=== PATIENT | male | born 1935 | race Two or more races ===

== ENCOUNTER 2017-05-13 01:01 | Inpatient (IN) | payer MEDICARE, OTHER ==
[~2017-05-13] VITALS: Ht 180.3 cm; Wt 81.6 kg
[2017-05-13] VITALS (11 sets, daily range): BP systolic 117–194; BP diastolic 59–106
[2017-05-13 01:56] LABS: BASOPHILS % (AUTO) 0.8 % (0.0-2.0); LYMPHOCYTES % (AUTO) 9.5 % (20.0-45.0); MEAN CORPUSCULAR HEMOGLOBIN 27.3 PG (27.0-31.0); MEAN CORPUSCULAR HGB CONC 31.4 G/DL (32.0-36.0); MEAN CORPUSCULAR VOLUME 87 FL (80-99); MEAN PLATELET VOLUME 6.7 FL (6.5-10.1); MONOCYTES % (AUTO) 12.7 % (1.0-10.0); NEUTROPHILS % (AUTO) 77.1 % (45.0-75.0); PLATELET COUNT 242 K/UL (150-450); RED BLOOD COUNT 4.75 M/UL (4.70-6.10); WHITE BLOOD COUNT 16.9 K/UL (4.8-10.8)
[2017-05-13 02:10] LABS: ANION GAP 12 mmol/L (5-15); CALCIUM 8.8 MG/DL (8.5-10.1); CARBON DIOXIDE 23 MMOL/L (21-32); CHLORIDE 106 MMOL/L (98-107); CREATININE 1.9 MG/DL (0.55-1.30); POTASSIUM 3.3 MMOL/L (3.5-5.1); SODIUM 141 MMOL/L (136-145)
[2017-05-13 02:20] LABS: REFLEX LACTIC ACID YES OR NO YES
[2017-05-13 02:24] LABS: ALANINE AMINOTRANSFERASE 33 U/L (12-78); ALBUMIN/GLOBULIN RATIO 0.8 (1.0-2.7); ASPARTATE AMINO TRANSFERASE 18 U/L (15-37); CKMB < 0.5 NG/ML (0.0-3.6); TOTAL PROTEIN 7.2 G/DL (6.4-8.2)
[2017-05-13 02:44] LABS: APPEARANCE,URINE CLOUDY; KETONES,URINE NEGATIVE (NEGATIVE); LEUKOCYTE ESTERASE ,URINE 3+ (NEGATIVE); NITRITE,URINE POSITIVE (NEGATIVE); PH,URINE 5 (4.5-8.0); PROTEIN,URINE 3+ (NEGATIVE); UROBILINOGEN,URINE NORMAL MG/DL (0.0-1.0)
[2017-05-13 02:51] LABS: BACTERIA,URINE MANY /HPF; WBC,URINE TNTC /HPF (0 - 0)
[2017-05-13] MEDS ORDERED: cefTRIAXone 1 GM in NS 55 ML IVPB ONE (03:00)
[2017-05-13] MEDS ORDERED: UNOBMED (03:13)
[2017-05-13] MEDS ORDERED: CLONIDINE0.1 MG ORAL (03:44)
[2017-05-13] MEDS ORDERED: ASPIR 8181 MG ORAL (03:44)
[2017-05-13] MEDS ORDERED: NORVASC2.5 MG ORAL (03:44)
[2017-05-13] MEDS ORDERED: dilTIAZem HCl 25mg/5ml Inj IVP ONE (04:15)
[2017-05-13] MEDS ORDERED: Acetaminophen 500mg (ES) tab ORAL ONE (04:30)
--- NOTE | 2017-05-13 05:47 | Emergency Room Report ---
History of Present Illness General Chief Complaint: Generalized Weakness Source: EMS Present Illness HPI 81-year-old male presents ED for evaluation. Per EMS patient noted to be feeling weak for the last several days. Son call 911. States that patient was walking with unsteady gait. No slurred speech or facial droop. No chest pain shortness of breath. Denies any fevers or chills. Denies sick contacts or recent travel. No other aggravating factors. Denies any other specific symptoms Allergies: Coded Allergies: No Known Allergies (Unverified , 05/13/17) Patient History Past Medical History: HTN Past Surgical History: none Pertinent Family History: none Social History: Denies: smoking, alcohol use, drug use Immunizations: UTD Reviewed Nursing Documentation: PMH: Agreed, PSxH: Agreed Nursing Documentation-PMH Past Medical History: No History, Except For Hx Hypertension: Yes Review of Systems All Other Systems: negative except mentioned in HPI Physical Exam Vital Signs Date Time Temp Pulse Resp B/P (MAP) Pulse Ox O2 Delivery O2 Flow Rate FiO2 05/13/17 00:33 98.1 102 16 137/74 98 Room Air Sp02 EP Interpretation: reviewed, normal General Appearance: no apparent distress, alert, GCS 15, non-toxic Head: normocephalic, atraumatic Eyes: bilateral eye normal inspection, bilateral eye PERRL ENT: hearing grossly normal, normal pharynx, no angioedema, normal voice Neck: full range of motion, supple/symm/no masses Respiratory: chest non-tender, lungs clear, normal breath sounds, speaking full sentences Cardiovascular #1: regular rate, rhythm, no edema Cardiovascular #2: 2+ carotid (R), 2+ carotid (L), 2+ radial (R), 2+ radial (L) , 2+ dorsalis pedis (R), 2+ dorsalis pedis (L) Gastrointestinal: normal bowel sounds, non tender, soft, non-distended, no guarding, no rebound Rectal: deferred Genitourinary: normal inspection, no CVA tenderness Musculoskeletal: back normal, gait/station normal, normal range of motion, non- tender Neurologic: alert, oriented x3, responsive, motor strength/tone normal, sensory intact, speech normal Psychiatric: judgement/insight normal, memory normal, mood/affect normal, no suicidal/homicidal ideation Reflexes: 3+ bicep (R), 3+ bicep (L), 3+ tricep (R), 3+ tricep (L), 3+ knee (R) , 3+ knee (L) Skin: normal color, no rash, warm/dry, well hydrated Lymphatic: no adenopathy Medical Decision Making Diagnostic Impression: Primary Impression: UTI (urinary tract infection) Qualified Codes: N39.0 - Urinary tract infection, site not specified Additional Impressions: Sepsis Qualified Codes: A41.9 - Sepsis, unspecified organism Episode of generalized weakness Renal insufficiency ER Course Hospital Course 81-year-old male presenting to ED with generalized weakness Differential diagnoses include: Pneumonia, UTI, sepsis, dehydration, [place]/ unstable angina Clinical course Patient placed on stretcher. On cardiac monitor technician with stable vitals are ED course. After initial history and physical, I ordered labs, IV fluids, EKG, chest x-ray, blood cultures, UA. CT head Labs - BUN/Cr elevated, noted leukocytosis, troponins negative, Lactate elevated , UA grossly positive for UTI EKG - NSR, no acute ischemic changes interpreted by me CXR - no acute process CT Head - old infarcts Abx given. given 30cc/kg fluid bolus. Patient became tachycardic and hypertensive. Given hydralazine and Cardizem. Patient became febrile-given Tylenol Case discussed with Dr Boyd and they agreed to admit patient to their service for further care and support I feel this is a highly complex case requiring extensive working including EKG/ Rhythm strip, Xray/CT/US, Blood/urine lab work, repeat exams while in ED, and administration of strong opiates/narcotics for pain control, admission to hospital or close patient follow up. Diagnosis - UTI, generalized weakness, sepsis, renal insuffiiency Patient admitted to telemetry in serious condition Labs Test 05/13/17 01:00 05/13/17 02:25 White Blood Count 16.9 K/UL (4.8-10.8) Red Blood Count 4.75 M/UL (4.70-6.10) Hemoglobin 13.0 G/DL (14.2-18.0) Hematocrit 41.4 % (42.0-52.0) Mean Corpuscular Volume 87 FL (80-99) Mean Corpuscular Hemoglobin 27.3 PG (27.0-31.0) Mean Corpuscular Hemoglobin Concent 31.4 G/DL (32.0-36.0) Red Cell Distribution Width 14.0 % (11.6-14.8) Platelet Count 242 K/UL (150-450) Mean Platelet Volume 6.7 FL (6.5-10.1) Neutrophils (%) (Auto) 77.1 % (45.0-75.0) Lymphocytes (%) (Auto) 9.5 % (20.0-45.0) Monocytes (%) (Auto) 12.7 % (1.0-10.0) Eosinophils (%) (Auto) 0.0 % (0.0-3.0) Basophils (%) (Auto) 0.8 % (0.0-2.0) Sodium Level 141 MMOL/L (136-145) Potassium Level 3.3 MMOL/L (3.5-5.1) Chloride Level 106 MMOL/L (98-107) Carbon Dioxide Level 23 MMOL/L (21-32) Anion Gap 12 mmol/L (5-15) Blood Urea Nitrogen 21 mg/dL (7-18) Creatinine 1.9 MG/DL (0.55-1.30) Estimat Glomerular Filtration Rate mL/min (>60) Glucose Level 209 MG/DL (74-106) Lactic Acid Level 2.80 mmol/L (0.66-2.22) Calcium Level 8.8 MG/DL (8.5-10.1) Total Bilirubin 0.6 MG/DL (0.2-1.0) Aspartate Amino Transf (AST/SGOT) 18 U/L (15-37) Alanine Aminotransferase (ALT/SGPT) 33 U/L (12-78) Alkaline Phosphatase 72 U/L (46-116) Total Creatine Kinase 54 U/L (26-308) Creatine Kinase MB < 0.5 NG/ML (0.0-3.6) Creatine Kinase MB Relative Index 0.9 Troponin I 0.000 ng/mL (0.000-0.056) Pro-B-Type Natriuretic Peptide 443 pg/mL (0-125) Total Protein 7.2 G/DL (6.4-8.2) Albumin 3.1 G/DL (3.4-5.0) Globulin 4.1 g/dL Albumin/Globulin Ratio 0.8 (1.0-2.7) Urine Color Pale yellow Urine Appearance Cloudy Urine pH 5 (4.5-8.0) Urine Specific Moss 1.015 (1.005-1.035) Urine Protein 3+ (NEGATIVE) Urine Glucose (UA) Negative (NEGATIVE) Urine Ketones Negative (NEGATIVE) Urine Occult Blood 4+ (NEGATIVE) Urine Nitrite Positive (NEGATIVE) Urine Bilirubin Negative (NEGATIVE) Urine Urobilinogen Normal MG/DL (0.0-1.0) Urine Leukocyte Esterase 3+ (NEGATIVE) Urine RBC 10-15 /HPF (0 - 0) Urine WBC Tntc /HPF (0 - 0) Urine Squamous Epithelial Cells None /LPF (NONE/OCC) Urine Bacteria Many /HPF (NONE) EKG Diagnostic Results Rate: normal Rhythm: NSR ST Segments: no acute changes ASA given to the pt in ED: No Rhythm Strip Diag. Results EP Interpretation: yes Rhythm: NSR, no PVC's, no ectopy Chest X-Ray Diagnostic Results Chest X-Ray Diagnostic Results : Chest X-Ray Ordered: Yes # of Views/Limited/Complete: 1 View Indication: Other - weakness EP Interpretation: Yes Interpretation: no consolidation, no effusion, no pneumothorax, no acute cardiopulmonary disease Impression: No acute disease Electronically Signed by: Electronically signed by Bao Thomson MD CT/MRI/US Diagnostic Results CT/MRI/US Diagnostic Results : Imaging Test Ordered: CT Head Impression old infarcts. no acute process Last Vital Signs Date Time Temp Pulse Resp B/P (MAP) Pulse Ox O2 Delivery O2 Flow Rate FiO2 05/13/17 05:00 99.9 102 16 138/59 99 Room Air Status: improved Disposition: ADMITTED INPATIENT Condition: Serious Referrals: NOT CHOSEN IPA/,REFERRING (PCP) BAO THOMSON M.D. May 13, 2017 05:47
[2017-05-13] MEDS: Aspirin Baby 81mg ORAL SCH (09:02)
[2017-05-13] MEDS: Heparin 5000 units/ml inj SUBQ SCH ×2 (09:03→22:12)
--- NOTE | 2017-05-13 09:08 | Diagnostic Imaging Report ---
Indication: Altered mental status Comparison: None Technique: Contiguous helical CT images of the brain was performed with [address] dose: Total DLP: 1354 mGycm; CTDI volume: 70.4 mGy Findings: There is no acute intracranial hemorrhage or infarct. No mass, mass effect or midline shift identified. Ventricles and sulci are prominent secondary to global cortical atrophy. Chronic bilateral basal ganglia lacunar infarcts are noted. There are no extra-axial fluid collections seen. Periventricular chronic ischemic changes are noted. Bony calvarium is intact. Mastoid air cells and visualized paranasal sinuses are clear. Impression: 1. No acute intracranial abnormalities. 2. Global cortical atrophy with periventricular chronic ischemic changes. 3. Chronic bilateral basal ganglia lacunar infarcts. The CT scanner at [facility] is accredited by the [employer] and the scans are performed using protocols designed to limit radiation exposure to as low as reasonably achievable to attain images of sufficient resolution adequate for diagnostic evaluation.
--- NOTE | 2017-05-13 09:10 | Diagnostic Imaging Report ---
Indication: Shortness of breath Comparison: None Findings: Single view of the chest shows a normal cardiomediastinal silhouette. Pulmonary vasculature is normal. Lung are clear. Soft tissues and osseous structures are within normal limits. Impression: No acute chest disease
[2017-05-13] MEDS: NS w/KCl 20mEq 1,000 ML IV SCH ×2 (12:56→22:13)
[2017-05-13] MEDS ORDERED: LISINOPRIL5 MG ORAL (13:24)
[2017-05-13] MEDS ORDERED: ASPIRIN81 MG ORAL (13:24)
[2017-05-13] MEDS ORDERED: CLONIDINE HCL0.1 MG PO (13:24)
[2017-05-13] MEDS ORDERED: NORVASC10 MG ORAL (13:24)
[2017-05-13 13:31] LABS: MEAN CORPUSCULAR HGB CONC 31.8 G/DL (32.0-36.0); MEAN CORPUSCULAR VOLUME 88 FL (80-99); MEAN PLATELET VOLUME 7.5 FL (6.5-10.1); PLATELET COUNT 182 K/UL (150-450); RED CELL DISTRIBUTION WIDTH 14.1 % (11.6-14.8); WHITE BLOOD COUNT 18.8 K/UL (4.8-10.8)
[2017-05-13 14:09] LABS: BAND NEUTROPHILS % (MANUAL) 0 % (0-8); BASOPHILS % (MANUAL) 0 % (0-2); EOSINOPHILS % (MANUAL) 0 % (0-3); LYMPHOCYTES % (MANUAL) 18 % (20-45); NEUTROPHILS % (MANUAL) 75 % (45-75); PLATELET ESTIMATE ADEQUATE; TOTAL CELLS COUNTED 100
[2017-05-13 14:10] LABS: ANISOCYTOSIS 1+; HYPOCHROMASIA 1+; PLATELET MORPHOLOGY NORMAL
[2017-05-13 14:12] LABS: ALANINE AMINOTRANSFERASE 35 U/L (12-78); ALBUMIN/GLOBULIN RATIO 0.6 (1.0-2.7); ANION GAP 10 mmol/L (5-15); ASPARTATE AMINO TRANSFERASE 28 U/L (15-37); CARBON DIOXIDE 23 MMOL/L (21-32); CHLORIDE 113 MMOL/L (98-107); CREATININE 1.6 MG/DL (0.55-1.30); MAGNESIUM 1.6 MG/DL (1.8-2.4); POTASSIUM 3.7 MMOL/L (3.5-5.1); SODIUM 146 MMOL/L (136-145); THYROID STIMULATING HORMONE 0.665 uiU/mL (0.360-3.740); TOTAL PROTEIN 6.1 G/DL (6.4-8.2)
[2017-05-13] MEDS: Zosyn 3.375gm/50ml Premix 50 ML IVPB SCH ×2 (15:02→22:12)
--- NOTE | 2017-05-13 15:30 | History and Physical Report ---
DATE OF ADMISSION: 05/13/2017 REASON FOR ADMISSION: Altered mental status HISTORY OF PRESENT ILLNESS: This 81-year-old male presented to the emergency room with several days of progressive weakness. He was reported by his son to be walking with an unsteady gait. He did not have any slurring of his speech. He apparently also was transiently unresponsive. His son called 911 and he was brought to the emergency room at [facility]. Initial vitals were notable for blood pressure 137/74, heart rate 102 and respiratory rate 16 with a temperature of 98.1 degrees. The patient was given IV fluids and antibiotics following initial laboratory studies and admitted to the cardiac observation unit. PAST MEDICAL HISTORY: Notable for hypertension, cerebrovascular atherosclerosis, and osteoarthritis. MEDICATIONS: Prior to admission, an incomplete list is available and that is reviewed. ALLERGIES: None known. SOCIAL HISTORY: No smoking, alcohol or substance abuse. FAMILY HISTORY: Noncontributory. REVIEW OF SYSTEMS: Cannot be reliably obtained from the patient. PHYSICAL EXAMINATION: GENERAL: Withdrawn and lethargic, but arousable. VITAL SIGNS: Labile ranging from 194/106 with a heart rate 105, respiratory rate of 16 and temperature of 100 degrees to 117/60 with heart rate 84, respiratory rate 20, and temperature 98.2 degrees, and oxygen saturation 95% on room air. HEENT: Normocephalic and atraumatic. Conjunctivae are pink. Sclerae are anicteric. Oropharynx clear. Mucous membranes dry. NECK: Supple. No jugular venous distention. No thyromegaly. LUNGS: Clear breath sounds. CARDIAC: Regular rhythm and rate. Normal S1 and S2 with a fourth heart sound. ABDOMEN: Soft and nontender. No guarding or rebound. EXTREMITIES: No edema. NEUROLOGIC: Symmetric strength. Slow response time. LABORATORY AND DIAGNOSTIC DATA: Urinalysis with too numerous to count white cells. White count 16.9, hemoglobin 13. Lactic acid 2.8. BUN 21 and creatinine 1.9, bicarbonate 23, sodium 141, potassium 3.3, and glucose 209. Troponin negative. Pro-natriuretic peptide 443. Albumin 3.1. IMPRESSION: 1. Toxic and metabolic encephalopathies. 2. Urinary tract infection with sepsis. 3. Hypokalemia. 4. Acute on chronic kidney injury likely due to acute tubular necrosis. 5. Lactic acidosis. 6. Hyperglycemia, possible diabetes mellitus. 7. Hypertensive heart disease with labile blood pressure. 8. Leukocytosis. 9. Hypovolemia and dehydration. PLAN: 1. Cardiac monitoring. 2. Volume resuscitation. 3. Potassium replacement. 4. Check magnesium. 5. As needed antihypertensive only. 6. DVT prophylaxis. 7. Continue anti-platelet therapy. 8. Broad-spectrum antibiotics. 9. Await culture results and adjust therapy accordingly. 10. Serial lactic acid levels. 11. Monitor neurologic state. 12. Consider further imaging studies based on clinical parameters. Cuauhtemoc Boyd M.D. DR: ROJAS JOB#: [id number] CC: YUDI
[2017-05-13] MEDS ORDERED: Tubing IV Secondary IV ONE (22:49)
[2017-05-13] MEDS ORDERED: NS 275ml ONE (22:49)
[2017-05-14 00:43] VITALS: BP 155/71
[2017-05-14] MEDS: 1/2NS w/KCl 20mEq 1000ml 1,000 ML IV SCH ×3 (00:45→20:01)
[2017-05-14] MEDS ORDERED: cefTRIAXone 1 GM in D5W 55 ML IVPB SCH (03:00)
[2017-05-14 04:00] VITALS: BP 154/69
[2017-05-14] MEDS: Zosyn 3.375gm/50ml Premix 50 ML IVPB SCH ×2 (06:01→13:33)
[2017-05-14 07:12] LABS: BASOPHILS % (AUTO) 0.5 % (0.0-2.0); EOSINOPHILS % (AUTO) 0.2 % (0.0-3.0); MEAN CORPUSCULAR HEMOGLOBIN 28.1 PG (27.0-31.0); MEAN CORPUSCULAR HGB CONC 32.3 G/DL (32.0-36.0); MEAN CORPUSCULAR VOLUME 87 FL (80-99); MEAN PLATELET VOLUME 6.9 FL (6.5-10.1); MONOCYTES % (AUTO) 12.8 % (1.0-10.0); NEUTROPHILS % (AUTO) 70.4 % (45.0-75.0); PLATELET COUNT 171 K/UL (150-450); RED BLOOD COUNT 4.08 M/UL (4.70-6.10); WHITE BLOOD COUNT 13.9 K/UL (4.8-10.8)
[2017-05-14 07:49] LABS: ALANINE AMINOTRANSFERASE 46 U/L (12-78); ALBUMIN/GLOBULIN RATIO 0.6 (1.0-2.7); ANION GAP 8 mmol/L (5-15); ASPARTATE AMINO TRANSFERASE 33 U/L (15-37); CALCIUM 8.3 MG/DL (8.5-10.1); CARBON DIOXIDE 24 MMOL/L (21-32); CHLORIDE 110 MMOL/L (98-107); CREATININE 1.6 MG/DL (0.55-1.30); POTASSIUM 3.6 MMOL/L (3.5-5.1); SODIUM 142 MMOL/L (136-145); TOTAL PROTEIN 6.4 G/DL (6.4-8.2)
[2017-05-14 08:00] VITALS: BP 132/77
[2017-05-14] MEDS: Aspirin Baby 81mg ORAL SCH (08:08)
[2017-05-14] MEDS: Heparin 5000 units/ml inj SUBQ SCH ×2 (09:18→21:06)
[2017-05-14 12:00] VITALS: BP 133/76
[2017-05-14 16:00] VITALS: BP 141/63
--- NOTE | 2017-05-14 16:46 | Consultation ---
DATE OF CONSULTATION: 05/14/2017 INFECTIOUS DISEASE CONSULTATION This consult is for coverage of Dr. Cartagena. CONSULTING PHYSICIAN: Jose Rafael Oshea M.D. PRIMARY ATTENDING PHYSICIAN: Cuauhtemoc Boyd M.D. REASON FOR CONSULTATION: Gram-negative sepsis. HISTORY OF PRESENT ILLNESS: The patient is an 81-year-old male, admitted yesterday from home because of weakness and unsteady gait. In the hospital, the patient had a temperature of up to 101.9. He had lactic acidosis and tachycardia with a pulse of 107. The patient personally denies having any problems. PAST MEDICAL HISTORY: Significant for hypertension. MEDICATIONS: Zosyn started yesterday, clonidine, heparin, aspirin, and Tylenol. ALLERGIES: No known drug allergies. SOCIAL HISTORY: No history of alcohol, drug abuse, or smoking. REVIEW OF SYSTEMS: Basically, the patient denies everything and no complaints at all. PHYSICAL EXAMINATION: GENERAL APPEARANCE: No acute distress. VITAL SIGNS: Temperature 97, pulse 80, blood pressure is 132/ . HEAD AND NECK: [place] conjunctivae. HEART: Regular. LUNGS: Clear. ABDOMEN: Soft and nontender. EXTREMITIES: He has no edema. NEUROLOGIC: He is awake, alert, and verbal. Moves all extremities. LABORATORY DATA: Sodium 142; potassium 3.6; chloride 110; bicarbonate 24; BUN 14; creatinine 1.6, coming down from 1.9; and glucose is 110. Albumin is 2.4. WBC 13.9 coming down from 18.8 yesterday. Hemoglobin 11.5, hematocrit 35.5, and platelets are 171. UA showed WBC too numerous to count, nitrite positive, and leukocyte esterase 3+ positive. Blood culture x2, gram-negative rods. Urine culture, gram-negative rods. IMPRESSION: 1. Gram-negative sepsis, source seems to be urinary tract infection. 2. The patient has acute renal failure. 3. History of hypertension. 4. He seems to have some dementia. RECOMMENDATIONS: 1. We will continue with Zosyn. 2. We will follow up the culture. 3. We will try to obtain more information regarding previous problems including prostatic hypertrophy. At the end of my exam, I thank Dr. Boyd for involving me in the care of this patient. Jose Rafael Oshea M.D. DR: FRANSISCO JOB#: [id number] CC:
[2017-05-14 20:21] VITALS: BP 145/76
[2017-05-14] MEDS: Piperacillin/Tazobactam 3.375 GM in D5W 55 ML IVPB SCH (22:00)
[2017-05-15 00:17] VITALS: BP 150/79
[2017-05-15 04:07] VITALS: BP 160/75
--- NOTE | 2017-05-15 04:15 | Progress Note ---
DATE: 05/14/2017 CARDIOLOGY PROGRESS NOTE SUBJECTIVE: The patient is more awake and alert and interactive today. Appetite is fair. Blood cultures are positive. OBJECTIVE: VITAL SIGNS: Blood pressure is 132/77, pulse rate 80, respiratory rate 18, and afebrile. NECK: Supple. LUNGS: Clear. CARDIAC: Regular rhythm and rate. Normal S1 and S2. ABDOMEN: Soft. EXTREMITIES: No edema. LABORATORY DATA: White count is 13.9 and hemoglobin 11.5. BUN is 14, creatinine 1.6, and potassium 3.6. Albumin 3.4. Urine and blood cultures are positive for gram-negative bacillus. IMPRESSION: 1. Urinary tract infection. 2. Sepsis. 3. Suspected bacteremia with same pathogen. 4. Toxic and metabolic encephalopathy. 5. Resolved lactic acidosis. 6. Hypertensive heart disease with improved blood pressure. 7. Hypovolemia and dehydration. 8. Hypomagnesemia. 9. Severe protein-calorie malnutrition. PLAN: 1. Antimicrobials. 2. Await final cultures. 3. Continue cardiac monitoring. 4. IV magnesium replacement. 5. Protein supplementation. 6. DVT and stress ulcer prophylaxis. Cuauhtemoc Boyd M.D. DR: Garfield JOB#: [id number] CC:
[2017-05-15] MEDS: Piperacillin/Tazobactam 3.375 GM in D5W 55 ML IVPB SCH ×2 (06:00→14:08)
[2017-05-15] MEDS: 1/2NS w/KCl 20mEq 1000ml 1,000 ML IV SCH ×2 (06:01→16:04)
[2017-05-15 08:00] VITALS: BP 149/75
[2017-05-15] MEDS: Aspirin Baby 81mg ORAL SCH (08:34)
[2017-05-15] MEDS: Heparin 5000 units/ml inj SUBQ SCH ×2 (08:36→21:11)
[2017-05-15 12:00] VITALS: BP 134/76
--- NOTE | 2017-05-15 12:18 | Infectious Diseases Prog Note ---
Assessment/Plan Assessment/Plan antibiotics : zosyn A 1. gram negative sepsis 2. e.coli UTI 3. leucocytosis improving 4. HTN 5. renal failure P 1. continue zosyn 2. will follow up cultures 3. US abdomen Subjective ROS Limited/Unobtainable: Yes Allergies: Coded Allergies: No Known Allergies (Unverified , 05/13/17) Objective Vital Signs Last 24 Hour Vital Signs Date Time Temp Pulse Resp B/P (MAP) Pulse Ox O2 Delivery O2 Flow Rate FiO2 05/15/17 08:00 97.8 67 20 149/75 94 Room Air 05/15/17 08:00 71 05/15/17 04:16 69 05/15/17 04:07 97.5 70 18 160/75 94 Room Air 05/15/17 00:17 96.4 72 18 150/79 99 Room Air 05/14/17 23:47 73 05/14/17 20:21 98.2 72 18 145/76 96 Room Air 05/14/17 19:52 75 05/14/17 16:00 98.2 67 15 141/63 96 Room Air 05/14/17 16:00 66 Height (Feet): 5 Height (Inches): 11.00 Weight (Pounds): 180 Respiratory/Chest: lungs clear Cardiovascular: normal rate, regular rhythm, no gallop/murmur Abdomen: soft, non tender Extremities: no edema Microbiology Date/Time Source Procedure Growth Status 05/13/17 01:00 Blood Blood Culture - Preliminary Gram Negative Bacillus 1 Resulted 05/13/17 00:55 Blood Blood Culture - Preliminary Gram Negative Bacillus 1 Resulted 05/13/17 02:25 Urine,Clean Catch Urine Culture - Final Escherichia Coli Complete TAYLER PEDERSON May 15, 2017 12:18
[2017-05-15 16:00] VITALS: BP 138/75
[2017-05-15] MEDS ORDERED: ATORVASTATIN CA20 MG ORAL (19:36)
[2017-05-15 20:23] VITALS: BP 144/78
[2017-05-15] MEDS ORDERED: ceFAZolin 1gm/50ml Premix 50 ML IV SCH (21:00)
[2017-05-15] MEDS: ceFAZolin sod 1 GM in D5W 55 ML IVP SCH (22:02)
[2017-05-16 00:34] VITALS: BP 155/77
--- NOTE | 2017-05-16 02:15 | Progress Note ---
DATE: 05/15/2017 INTERNAL MEDICINE PROGRESS NOTE SUBJECTIVE: The patient's cultures of the blood and urine are positive for E. coli, sensitive to almost all antibiotics. The patient is awake, alert, and tolerating diet. The case was discussed with her son. He agrees that the patient requires rehabilitation prior to returning home. OBJECTIVE: VITAL SIGNS: Stable. The patient is afebrile. LUNGS: Clear. HEART: Regular rhythm and rate. Normal S1 and S2. ABDOMEN: Soft. No focal tenderness. EXTREMITIES: No edema. IMPRESSION: 1. Recovering sepsis due to Escherichia coli. 2. Urinary tract infection with bacteremia. 3. Functional decline. 4. Metabolic encephalopathy. PLAN: 1. Continue antimicrobials. 2. Mobilize. 3. Protein supplement. 4. Adjust intravenous fluids. 5. Referral to [facility] facility. Cuauhtemoc Boyd M.D. DR: YISEL JOB#: [id number] CC:
[2017-05-16] MEDS: 1/2NS w/KCl 20mEq 1000ml 1,000 ML IV SCH ×2 (02:35→20:32)
[2017-05-16 04:04] VITALS: BP 151/73
[2017-05-16 08:00] VITALS: BP 138/72
[2017-05-16 08:08] LABS: BASOPHILS % (AUTO) 0.5 % (0.0-2.0); EOSINOPHILS % (AUTO) 2.1 % (0.0-3.0); LYMPHOCYTES % (AUTO) 29.7 % (20.0-45.0); MEAN CORPUSCULAR HEMOGLOBIN 27.3 PG (27.0-31.0); MEAN CORPUSCULAR HGB CONC 31.9 G/DL (32.0-36.0); MEAN CORPUSCULAR VOLUME 86 FL (80-99); MEAN PLATELET VOLUME 7.1 FL (6.5-10.1); MONOCYTES % (AUTO) 14.7 % (1.0-10.0); NEUTROPHILS % (AUTO) 52.9 % (45.0-75.0); PLATELET COUNT 222 K/UL (150-450); RED BLOOD COUNT 4.51 M/UL (4.70-6.10); RED CELL DISTRIBUTION WIDTH 13.4 % (11.6-14.8); WHITE BLOOD COUNT 7.2 K/UL (4.8-10.8)
[2017-05-16 08:14] LABS: ALANINE AMINOTRANSFERASE 44 U/L (12-78); ALBUMIN/GLOBULIN RATIO 0.6 (1.0-2.7); ANION GAP 8 mmol/L (5-15); ASPARTATE AMINO TRANSFERASE 21 U/L (15-37); CALCIUM 8.8 MG/DL (8.5-10.1); CARBON DIOXIDE 26 MMOL/L (21-32); CHLORIDE 106 MMOL/L (98-107); CREATININE 1.4 MG/DL (0.55-1.30); MAGNESIUM 2.3 MG/DL (1.8-2.4); SODIUM 140 MMOL/L (136-145); TOTAL PROTEIN 6.9 G/DL (6.4-8.2)
[2017-05-16] MEDS: Heparin 5000 units/ml inj SUBQ SCH ×2 (08:33→20:20)
[2017-05-16] MEDS: Aspirin Baby 81mg ORAL SCH (08:33)
--- NOTE | 2017-05-16 10:59 | Infectious Diseases Prog Note ---
Assessment/Plan Assessment/Plan antibiotics : ancef A 1. e.coli sepsis secondary to UTI 2. gram positive sepsis 3. e.coli UTI 3. leucocytosis resolved 4. HTN 5. renal failure P 1. continue ancef 2. 1 dose iv vancomycin 3. will follow up cultures 4. US abdomen pending Subjective Constitutional: Denies: fever, chills Respiratory: Denies: shortness of breath, dry cough Gastrointestinal/Abdominal: Denies: nausea, vomiting, diarrhea Musculoskeletal: Denies: pain Allergies: Coded Allergies: No Known Allergies (Unverified , 05/13/17) Objective Vital Signs Last 24 Hour Vital Signs Date Time Temp Pulse Resp B/P (MAP) Pulse Ox O2 Delivery O2 Flow Rate FiO2 05/16/17 08:00 97.7 61 18 138/72 96 Room Air 05/16/17 04:04 98.6 63 18 151/73 96 Room Air 05/16/17 04:00 61 05/16/17 00:34 96.6 66 18 155/77 97 Room Air 05/16/17 00:00 60 05/15/17 20:23 98.4 61 18 144/78 97 Room Air 05/15/17 20:00 63 05/15/17 16:00 63 05/15/17 16:00 97.2 69 21 138/75 95 Room Air 05/15/17 12:00 65 05/15/17 12:00 97.5 65 20 134/76 98 Room Air Height (Feet): 5 Height (Inches): 11.00 Weight (Pounds): 180 Respiratory/Chest: lungs clear Cardiovascular: normal rate, regular rhythm, no gallop/murmur Abdomen: soft, non tender Extremities: no edema Laboratory Tests Test 05/16/17 07:00 White Blood Count 7.2 K/UL (4.8-10.8) Red Blood Count 4.51 M/UL (4.70-6.10) L Hemoglobin 12.3 G/DL (14.2-18.0) L Hematocrit 38.7 % (42.0-52.0) L Mean Corpuscular Volume 86 FL (80-99) Mean Corpuscular Hemoglobin 27.3 PG (27.0-31.0) Mean Corpuscular Hemoglobin Concent 31.9 G/DL (32.0-36.0) L Red Cell Distribution Width 13.4 % (11.6-14.8) Platelet Count 222 K/UL (150-450) Mean Platelet Volume 7.1 FL (6.5-10.1) Neutrophils (%) (Auto) 52.9 % (45.0-75.0) Lymphocytes (%) (Auto) 29.7 % (20.0-45.0) Monocytes (%) (Auto) 14.7 % (1.0-10.0) H Eosinophils (%) (Auto) 2.1 % (0.0-3.0) Basophils (%) (Auto) 0.5 % (0.0-2.0) Sodium Level 140 MMOL/L (136-145) Potassium Level 4.0 MMOL/L (3.5-5.1) Chloride Level 106 MMOL/L (98-107) Carbon Dioxide Level 26 MMOL/L (21-32) Anion Gap 8 mmol/L (5-15) Blood Urea Nitrogen 13 mg/dL (7-18) Creatinine 1.4 MG/DL (0.55-1.30) H Estimat Glomerular Filtration Rate mL/min (>60) Glucose Level 84 MG/DL (74-106) Calcium Level 8.8 MG/DL (8.5-10.1) Magnesium Level 2.3 MG/DL (1.8-2.4) Total Bilirubin 0.3 MG/DL (0.2-1.0) Aspartate Amino Transf (AST/SGOT) 21 U/L (15-37) Alanine Aminotransferase (ALT/SGPT) 44 U/L (12-78) Alkaline Phosphatase 96 U/L (46-116) Total Protein 6.9 G/DL (6.4-8.2) Albumin 2.5 G/DL (3.4-5.0) L Globulin 4.4 g/dL Albumin/Globulin Ratio 0.6 (1.0-2.7) L TAYLER PEDERSON May 16, 2017 10:59
[2017-05-16] MEDS: ceFAZolin sod 1 GM in D5W 55 ML IVP SCH (11:03)
--- NOTE | 2017-05-16 11:29 | Diagnostic Imaging Report ---
Indication: Abdominal distention, elevated renal function tests Technique: Reese-scale and duplex images of the upper abdomen were obtained Comparison: None Findings: Gallbladder is unremarkable, without stones, wall thickening, nor pericholecystic fluid. Sonographic Donnelly's sign is negative. Common bile duct measures 4 mm in diameter. No intrahepatic biliary ductal dilatation. Liver demonstrates equivocal slight coarsening of the echotexture, no focal abnormality Portal vein and hepatic veins are patent. Pancreas is unremarkable. Spleen is unremarkable. Left kidney measures 10.6 cm in length. Right kidney measures 9.3 cm length. Both kidneys demonstrate normal echogenicity. There is no hydronephrosis. No focal abnormality . Non-aneurysmal abdominal aorta . Impression: Equivocally slightly coarsened hepatic echogenicity, indicates hepatocellular disease Otherwise unremarkable. Negative for gallstones or dilated ducts
[2017-05-16] MEDS ORDERED: Vancomycin 1gm in D5W 275ml IVPB ONE (12:00)
[2017-05-16 12:22] VITALS: BP 140/73
[2017-05-16 15:41] VITALS: BP 144/75
[2017-05-16 20:00] VITALS: BP 155/73
[2017-05-16] MEDS ORDERED: ceFAZolin sod 1 GM in D5W 55 ML IVPB SCH (22:00)
[2017-05-17 00:13] VITALS: BP 154/76
[2017-05-17] MEDS ORDERED: 1/2NS w/KCl 20mEq 1000ml 1,000 ML IV SCH (00:30)
[2017-05-17 04:31] VITALS: BP 150/69
[2017-05-17] MEDS ORDERED: ceFAZolin sod 1 GM in D5W 55 ML IVPB SCH (06:00)
--- NOTE | 2017-05-17 06:31 | Progress Note ---
DATE: 05/16/2017 INTERNAL MEDICINE PROGRESS NOTE SUBJECTIVE: The patient is without distress. Oral intake is good. Cultures are noted. Final blood culture identification is pending. OBJECTIVE: VITAL SIGNS: Stable. HEENT: Oropharynx is clear. LUNGS: Clear. CARDIAC: Regular. Normal S1 and S2 with a fourth heart sound. ABDOMEN: Soft. EXTREMITIES: No edema. IMPRESSION: 1. Toxic and metabolic encephalopathy. 2. Escherichia coli urinary tract infection with sepsis. 3. Possible gram-positive bacteremia. 4. Functional decline. PLAN: 1. Discontinue IV fluids. 2. Antibiotics per Infectious Diseases cis[facility] consultant. 3. Physical and occupational therapy. 4. Discharge planning. Cuauhtemoc Boyd M.D. DR: NOHEMI JOB#: [id number] CC:
[2017-05-17 08:00] VITALS: BP 137/64
[2017-05-17] MEDS ORDERED: Aspirin Baby 81mg ORAL SCH (09:00)
[2017-05-17] MEDS ORDERED: Heparin 5000 units/ml inj SUBQ SCH (09:00)
[2017-05-17 12:00] VITALS: BP 142/72
--- NOTE | 2017-05-17 12:18 | Infectious Diseases Prog Note ---
Assessment/Plan Assessment/Plan A 1. E.coli sepsis secondary to UTI 2. CoANS in blood culture, contamination 3. e.coli UTI 3. leucocytosis resolved 4. HPN 5. renal failure P 1. continue Ancef Subjective ROS Limited/Unobtainable: No Respiratory: Reports: no symptoms Gastrointestinal/Abdominal: Reports: no symptoms Genitourinary: Reports: no symptoms Allergies: Coded Allergies: No Known Allergies (Unverified , 05/13/17) Objective Vital Signs Last 24 Hour Vital Signs Date Time Temp Pulse Resp B/P (MAP) Pulse Ox O2 Delivery O2 Flow Rate FiO2 05/17/17 08:00 97.8 63 19 137/64 96 Room Air 05/17/17 04:31 97.7 63 18 150/69 95 Room Air 05/17/17 00:13 97.5 66 18 154/76 96 Room Air 05/16/17 20:00 97.5 62 20 155/73 95 Room Air 05/16/17 20:00 57 05/16/17 16:00 59 05/16/17 15:41 98.1 61 20 144/75 97 Room Air 05/16/17 12:22 97.2 62 18 140/73 96 Room Air Height (Feet): 5 Height (Inches): 11.00 Weight (Pounds): 180 General Appearance: no acute distress HEENT: mucous membranes moist Respiratory/Chest: lungs clear Cardiovascular: normal rate Abdomen: soft, non tender Extremities: no edema Neurologic/Psychiatric: alert, responsive Current Medications Medications (Trade) Dose Ordered Sig/Jarett Route PRN Reason Start Time Stop Time Status Last Admin Dose Admin Acetaminophen (Tylenol) 650 mg Q4H PRN ORAL Mild Pain/Temp > 100.5 05/16/17 23:45 06/12/17 07:44 Aspirin (ASA) 81 mg DAILY ORAL 05/17/17 09:00 06/12/17 08:59 05/17/17 08:13 Cefazolin Sodium 1 gm/Dextrose 55 ml @ 110 mls/hr Q8HR IVPB 05/17/17 06:00 05/23/17 21:59 05/17/17 05:44 Clonidine HCl (Catapres) 0.1 mg Q4H PRN ORAL SBP above 150 05/17/17 01:00 06/12/17 12:59 Heparin Sodium (Porcine) (Heparin 5000 units/ml) 5,000 units EVERY 12 HOURS SUBQ 05/17/17 09:00 06/12/17 08:59 05/17/17 08:13 Sodium 1,000 ml @ 50 mls/hr Q20H IV 05/17/17 00:30 06/16/17 00:29 05/17/17 01:12 RIRI DON May 17, 2017 12:18
[2017-05-17] MEDS ORDERED: Cephalexin 500mg cap ORAL SCH ×2 (13:00→13:30)
[2017-05-17] MEDS ORDERED: ACETAMINOPHEN325 M1 ORAL (13:53)
[2017-05-17] MEDS ORDERED: CATAPRES0.1 MG ORAL (13:55)
[2017-05-17] MEDS ORDERED: HEPARIN SO5000 UNIT2 SUBQ (13:56)
[2017-05-17] MEDS ORDERED: CEPHALEXIN500 M1 ORAL (13:58)
[2017-05-17] MEDS ORDERED: NS 275ml ONE (17:04)
[2017-05-17] MEDS ORDERED: Tubing IV Secondary IV ONE (17:04)
--- NOTE | 2017-05-18 10:16 | Discharge Summary ---
Discharge Summary Hospital Course Date of Admission May 13, 2017 at 02:59 Date of Discharge May 17, 2017 at 17:05 Admitting Diagnosis weakness LUIS E Cooley is a 81 year old male who was admitted on May 13, 2017 at 02:59 for Weakness Hospital Course [id number] Discharge Discharge Disposition Patient was discharged to SNF/Subacute Facility(03) Discharge Diagnoses: Sabine Cooper NP May 18, 2017 10:16
--- NOTE | 2017-05-19 01:02 | Discharge Summary 2 SIG ---
DATE OF ADMISSION: 05/13/2017 DATE OF DISCHARGE: 05/17/2017 CONSULTANTS: Dakota Cartagena M.D. BRIEF HOSPITAL COURSE: The patient is an 81-year-old male, who presented to emergency room with several days of progressive weakness. He was reported by his son to be walking with an unsteady gait. He did not have any slurring of speech. He was apparently also transiently unresponsive. Son called 911 and he was taken to [place] emergency room. Initial vitals were notable for a blood pressure 137/74 and heart rate 102. On evaluation CAT scan of the head showed no acute intracranial abnormalities with chronic basal ganglia lacunar infarcts and global cortical atrophy with periventricular chronic ischemic changes. EKG was in normal sinus rhythm with no acute changes and chest x-ray showed no acute process. Blood work showed elevated BUN and creatinine. WBC was 16.9. Lactic acid 2.8. Urine WBC too many to count, urine RBC 10 to 15 with 3+ leukocyte esterase and positive nitrite. He was tachycardic and hypertensive and eventually was febrile and T-max 101.9 degrees. He was seen by Infectious Disease specialist and was started on IV Zosyn pending culture results. He was given volume resuscitation and potassium was 3.3. He was given potassium supplement. He was continued on antiplatelet therapy and was given DVT prophylaxis, Heparin subcutaneously. He had and abdominal ultrasound done, which was negative for gallstones or dilated ducts. Urine culture showed growth of E. coli. Blood culture with E. coli. He also had a blood culture with growth of Staphylococcus coagulase negative. He was given vancomycin x1 and antibiotic was switched to Ancef. Leukocytosis resolved. Intravenous fluids was discontinued. He was given physical and occupational therapy. He was eventually discharged to SNF to continue rehabilitation. FINAL DIAGNOSES: 1. Escherichia coli urinary tract infection with sepsis. 2. Acute toxic metabolic encephalopathy. 3. Possible gram-positive bacteremia. 4. Functional decline. 5. Hypokalemia. 6. Hypovolemia and dehydration. 7. Resolved lactic acidosis. 8. Hypertensive heart disease. 9. Hypomagnesemia. 10. Severe protein-calorie malnutrition. 11. Acute on chronic kidney injury. 12. Stenosis. 13. Hyperglycemia. DISPOSITION: The patient was discharged to [facility]. DISCHARGE MEDICATIONS: Refer to medication List. Continue with Keflex 500 mg q.12 h. x7 days. Cuauhtemoc Boyd M.D. I have been assigned to dictate discharge summary on this account and I was not involved in the patient's management. Sabine Cooper N.P. DR: CARY JOB#: [id number] CC: YUDI
--- NOTE | 2017-05-20 15:53 | Cardiology Report ---
APPROVED REPORT EKG Measurement Heart [id number] GA 146P53 [id number] Normal sinus rhythm Nonspecific T wave abnormality Abnormal ECG
--- NOTE | 2017-05-21 10:50 | Cardiology Report ---
APPROVED REPORT EXAM: Two-dimensional and M-mode echocardiogram with Doppler and color Doppler. Normal left ventricular chamber size, systolic function and wall motion. Left ventricular ejection fraction estimated to be 60-65 %. No evidence of left ventricular hypertrophy. No evidence of pericardial or pleural effusion. Right cardiac chamber sizes are within normal limits. Mild left atrial enlargement by 2D. Focal aortic valve sclerosis with adequate cusp excursion. Thickened mitral valve leaflets with normal excursion. Mild mitral annulus and aortic root calcification. Pulmonic valve not well visualized. Normal tricuspid valve structure. IVC dilated at 2.4 cm and collapsible with respiration indicate increased RA pressure. A color flow and spectral Doppler study was performed and revealed: Mild aortic regurgitation. Trace mitral regurgitation. Mitral diastolic velocities suggest reduced left ventricular relaxation c/w diastolic dysfunction grade 1. No tricuspid regurgitation.
== END 2017-05-17 17:05 | DRG 871 ==
LOC: EDBD 01:01 → EMR 02:44 → 4E 02:59 → EDBEDREQ 03:02 → 2E 05:04 → 4W 05-16 23:21
DX: A41.51 Sepsis due to Escherichia coli [E. coli] (principal); G92 Toxic encephalopathy; E43 Unspecified severe protein-calorie malnutrition; N17.9 Acute kidney failure, unspecified; E86.0 Dehydration; N39.0 Urinary tract infection, site not specified; I13.10 Hypertensive heart and chronic kidney disease without heart failure, with stage 1 through stage 4 chronic kidney disease, or unspecified chronic kidney disease; E86.1 Hypovolemia; E87.6 Hypokalemia; N18.9 Chronic kidney disease, unspecified; E83.42 Hypomagnesemia; R73.9 Hyperglycemia, unspecified; I25.10 Atherosclerotic heart disease of native coronary artery without angina pectoris
CPT/HCPCS: 36415; 51702; 70450; 71010; 76700; 80053; 81003; 82550; 82553; 83605; 83735; 83880; 84443; 84484; 85007; 85025; 87040; 87086; 87181; 93005; 93306; 99285

== ENCOUNTER 2017-09-08 06:13 | Inpatient (IN) | payer MEDICARE, OTHER ==
[~2017-09-08] VITALS: Ht 175.3 cm; Wt 63.5 kg
[~2017-09-08 06:13] MED LIST: ACETAMINOPHEN325 M1 ORAL; ASPIR 8181 MG ORAL; ASPIRIN81 MG ORAL; ATORVASTATIN CA20 MG ORAL; CATAPRES0.1 MG ORAL; CEPHALEXIN500 M1 ORAL; CLONIDINE HCL0.1 MG PO; CLONIDINE0.1 MG ORAL; HEPARIN SO5000 UNIT2 SUBQ; LISINOPRIL5 MG ORAL; NORVASC10 MG ORAL; NORVASC2.5 MG ORAL; UNOBMED
[2017-09-08 06:17] VITALS: BP 120/61
[2017-09-08] MEDS ORDERED: NS 1000ml 1,900 ML IVLG ONE (07:15)
--- NOTE | 2017-09-08 07:17 | Emergency Room Report ---
History of Present Illness General Chief Complaint: Syncope Source: Patient, EMS Present Illness HPI 82yo m presents with a syncopal episode that occurred while in the bathroom this morning Patient denies falling down or hurting himself. He does recollect the episode, but cannot recall many details He currently has no complaints, including no pain complaints and reports he did not bleed anywhere or hurt himself He denies any problems with bowel or bladder habits, urinary habits, fevers, shortness of breath, or any complaints at all Allergies: Coded Allergies: No Known Allergies (Unverified , 09/08/17) Patient History Past Medical History: see triage record Reviewed Nursing Documentation: PMH: Agreed, PSxH: Agreed Nursing Documentation-PMH Hx Cardiac Problems: Yes Hx Hypertension: Yes Hx Diabetes: Yes Hx Cancer: No Hx Gastrointestinal Problems: No Hx Neurological Problems: Yes Hx Dementia: Yes Review of Systems All Other Systems: negative except mentioned in HPI Physical Exam Vital Signs Date Time Temp Pulse Resp B/P (MAP) Pulse Ox O2 Delivery O2 Flow Rate FiO2 09/08/17 06:09 97.0 92 16 117/64 93 Room Air 97.0 Sp02 EP Interpretation: reviewed, normal - Slightly low oxygen sat General Appearance: no apparent distress, alert, non-toxic Head: normocephalic Eyes: bilateral eye normal inspection, bilateral eye PERRL, bilateral eye EOMI ENT: normal ENT inspection, hearing grossly normal, normal pharynx, no angioedema, normal voice, moist mucus membranes Neck: normal inspection, full range of motion, supple, supple/symm/no masses, other - Cervical spine deformiti Respiratory: chest non-tender, lungs clear, normal breath sounds, chest symmetrical, palpation of chest normal Cardiovascular #1: normal peripheral pulses, regular rate, rhythm Cardiovascular #2: 2+ radial (R), 2+ radial (L), 2+ dorsalis pedis (R), 2+ dorsalis pedis (L) Gastrointestinal: normal inspection, non tender, soft, no mass, no guarding, no rebound Rectal: deferred Genitourinary: normal inspection, no CVA tenderness Musculoskeletal: back normal, gait/station normal, normal range of motion, non- tender, no calf tenderness, Lilly's Sign negative - Questionable Positive Homans sign bilateral lower extremities, but minimal edema, no palpable cords Neurologic: alert, responsive, library clerical assistant III-XII nml as tested, motor strength/tone normal, sensory intact, speech normal Psychiatric: judgement/insight normal, memory normal, mood/affect normal, no suicidal/homicidal ideation Skin: normal color, no rash, warm/dry, normal turgor Lymphatic: no adenopathy Medical Decision Making Medical: HTN ER Course patient presented with syncope, but has a history of urinary tract infection and toxic metabolic encephalopathy Today he is alert and oriented to person place and situation with no focal neurologic deficits I did presume possible sepsis and initiated 30 mL per cc IV fluids, blood cultures, lactic acid, and broad-spectrum antibiotics immediately upon first hour of arrival Patient will have a chest CT done for possible PE given his mild hypoxia and positive Homans sign on both legs He will be admitted for further evaluation and telemetry monitoring Differential diagnosis does include PE, pneumonia, sepsis, arrhythmia Diagnosis syncope Labs with wbc 18k, treated for possible urine infection, repeat focused sepsis exam show patient with normal HR, cap refill wnl, normal MS. Will admi tto Dr. Boyd pending VQ scan and US B/L LE given elevated d-dimer. EKG Diagnostic Results EKG Time: 06:32 EP Interpretation: No ST-T segment changes or twi Rate: normal Rhythm: NSR ST Segments: no acute changes ASA given to the pt in ED: Yes Rhythm Strip Diag. Results EP Interpretation: yes Rate: 75 Rhythm: NSR, no PVC's, no ectopy Chest X-Ray Diagnostic Results Chest X-Ray Diagnostic Results : Chest X-Ray Ordered: Yes # of Views/Limited/Complete: 1 View Indication: Other EP Interpretation: Yes PA Xray: Interpretation reviewed Interpretation: no consolidation, no effusion, no pneumothorax, no acute cardiopulmonary disease Impression: No acute disease Electronically Signed by: Abiasi Lord MD Last Vital Signs Date Time Temp Pulse Resp B/P (MAP) Pulse Ox O2 Delivery O2 Flow Rate FiO2 09/08/17 06:17 97.0 85 16 120/61 93 Room Air 97.0 Status: unchanged Disposition: ADMITTED INPATIENT Admit Decision Time: 07:15 Condition: Serious Signed Out To: Dr. Boyd to admit Referrals: NON PHYSICIAN (PCP) ABISAI LORD M.D Sep 08, 2017 07:17
[2017-09-08] MEDS ORDERED: Aspirin Baby 81mg ORAL ONE (07:30)
[2017-09-08 07:50] LABS: APPEARANCE,URINE CLEAR; BILIRUBIN, URINE NEGATIVE (NEGATIVE); COLOR,URINE PALE YELLOW; GLUCOSE, URINE (UA) NEGATIVE (NEGATIVE); KETONES,URINE NEGATIVE (NEGATIVE); LEUKOCYTE ESTERASE ,URINE 3+ (NEGATIVE); NITRITE,URINE NEGATIVE (NEGATIVE); PH,URINE 5 (4.5-8.0); PROTEIN,URINE 2+ (NEGATIVE); UROBILINOGEN,URINE NORMAL MG/DL (0.0-1.0)
[2017-09-08 08:00] VITALS: BP 130/46
[2017-09-08] MEDS ORDERED: Vancomycin 1 GM in NS 275 ML IV ONE (08:00)
[2017-09-08] MEDS ORDERED: NS 275 ML ONE (08:24)
[2017-09-08] MEDS ORDERED: Vancomycin 1gm inj IVPB ONE (08:24)
[2017-09-08 08:45] LABS: HEMATOCRIT 41.7 % (42.0-52.0); HEMOGLOBIN 13.5 G/DL (14.2-18.0); MEAN CORPUSCULAR VOLUME 83 FL (80-99); PLATELET COUNT 262 K/UL (150-450); RED BLOOD COUNT 5.05 M/UL (4.70-6.10); RED CELL DISTRIBUTION WIDTH 15.3 % (11.6-14.8); WHITE BLOOD COUNT 18.4 K/UL (4.8-10.8)
[2017-09-08 08:50] LABS: ANION GAP 11 mmol/L (5-15); BLOOD UREA NITROGEN 24 mg/dL (7-18); CALCIUM 9.2 MG/DL (8.5-10.1); CARBON DIOXIDE 24 MMOL/L (21-32); CHLORIDE 105 MMOL/L (98-107); CREATININE 1.9 MG/DL (0.55-1.30); POTASSIUM 3.9 MMOL/L (3.5-5.1); SODIUM 140 MMOL/L (136-145)
[2017-09-08] MEDS ORDERED: Piperacillin/Tazobactam 3.375 GM in NS 55 ML IV SCH (09:00)
[2017-09-08] MEDS ORDERED: Piperacillin/Tazobactam 3.375 GM in NS 110 ML IV SCH (09:00)
[2017-09-08 09:10] LABS: ALANINE AMINOTRANSFERASE 23 U/L (12-78); ALBUMIN 3.2 G/DL (3.4-5.0); ALBUMIN/GLOBULIN RATIO 0.7 (1.0-2.7); ALKALINE PHOSPHATASE 78 U/L (46-116); ASPARTATE AMINO TRANSFERASE 20 U/L (15-37); BILIRUBIN,TOTAL 0.9 MG/DL (0.2-1.0); CKMB 1.2 NG/ML (0.0-3.6); CREATINE KINASE 100 U/L (26-308)
[2017-09-08] MEDS ORDERED: LISINOPRIL-HCT1 EACH ORAL (09:31)
[2017-09-08] MEDS ORDERED: Zosyn 3.375gm inj ONE (09:59)
[2017-09-08 10:02] VITALS: BP 121/52
--- NOTE | 2017-09-08 10:21 | Diagnostic Imaging Report ---
Indication: Chest pain Technique: XRAY Chest 1v Comparison: 05/13/2017 Findings: Cardiomediastinal silhouette is stable. There is no consolidation or pleural effusion. Degenerative changes of the spine are noted. Impression: No acute cardiopulmonary disease.
[2017-09-08 11:30] VITALS: BP 141/75
[2017-09-08] MEDS ORDERED: VITAMIN D1000 UNI1 ORAL (11:34)
[2017-09-08] MEDS ORDERED: Piperacillin/Tazobactam 3.375 GM in D5W 55 ML IV SCH (14:00)
[2017-09-08 16:48] VITALS: BP 136/45
[2017-09-08] MEDS: Piperacillin/Tazobactam 3.375 GM in NS 110 ML IVPB SCH (17:22)
[2017-09-08 20:00] VITALS: BP 141/61
--- NOTE | 2017-09-08 23:00 | History and Physical Report ---
DATE OF ADMISSION: 09/08/2017 REASON FOR ADMISSION: Urinary tract infection with sepsis. HISTORY OF PRESENT ILLNESS: This is an 82-year-old male, who felt dizzy, lightheaded, and almost passed out in the bathroom this morning. He did not fall or hurt himself and has full recollection of details. He came to the emergency room for evaluation where a diagnostic workup revealed signs of an acute infection. PAST MEDICAL HISTORY: Includes hypertension, type 2 diabetes mellitus, prostatic hypertrophy, and cerebrovascular disease with dementia. MEDICATIONS: Prior to admission, reviewed and reconciled. ALLERGIES: None. FAMILY HISTORY: Noncontributory. SOCIAL HISTORY: Negative for current smoking, alcohol, or substance abuse. REVIEW OF SYSTEMS: The patient was hospitalized here in May 2017 with a urinary tract infection, sepsis, and dehydration and was stabilized and [facility] to a [facility] facility for a short course of rehabilitation and then returned home. He has been living independently since. His son is involved with his care from his own home. PHYSICAL EXAMINATION: VITAL SIGNS: Afebrile, blood pressure 117/64, pulse 92, respirations 16, and room air oxygen sats 93%. HEENT: Normocephalic and atraumatic. Conjunctivae pink. Oropharynx clear. Mucous membranes dry. NECK: Supple. Jugular venous pressure normal. LUNGS: Clear. CARDIAC: Regular rhythm and rate. Normal S1 and S2 with no murmur, rub, or gallop. ABDOMEN: Soft and nontender. No guarding or rebound. No CVA tenderness. EXTREMITIES: Good pulses. No clubbing, cyanosis, or edema. NEUROLOGIC: Mild cognitive impairment. Symmetric strength. No asterixis. DIAGNOSTIC STUDIES: EKG, sinus rhythm, nonspecific ST-T changes, and ventricular rate of 75. Chest x-ray, no acute process. White count 18 and hemoglobin 13. BUN 24 and creatinine 1.9. Lactic acid 1.6. Glucose 185. Sodium 140, potassium 3.9, and bicarbonate 24. Troponin negative. Albumin 3.2. Urinalysis with 20 to 30 white cells and moderate bacteria. IMPRESSION: 1. Urinary tract infection with sepsis. 2. Hypovolemia and dehydration. 3. Leukocytosis. 4. Acute on chronic kidney injury with prerenal azotemia. 5. Mild protein-calorie malnutrition. 6. History of hypertension now with low range blood pressure. 7. Type 2 diabetes mellitus with hyperglycemia. 8. Metabolic and toxic encephalopathy. 9. Syncope likely due to hypovolemia and orthostasis. PLAN: 1. Panculture. 2. Intravenous fluid hydration/volume resuscitation. 3. Broad-spectrum antibiotics. 4. DVT prophylaxis. 5. Protein supplement. 6. Physical and occupational therapy evaluations to follow. Cuauhtemoc Boyd M.D. DR: YISEL JOB#: [id number] CC:
[2017-09-09] VITALS: BP 130/52
[2017-09-09] MEDS: Piperacillin/Tazobactam 3.375 GM in NS 110 ML IVPB SCH ×3 (01:22→17:16)
[2017-09-09 04:00] VITALS: BP 132/66
[2017-09-09 08:00] VITALS: BP 130/63
[2017-09-09] MEDS: Heparin 5000 units/ml inj SUBQ SCH ×2 (08:07→20:59)
[2017-09-09] MEDS: Vitamin D 1000 IU Tab ORAL SCH (08:12)
[2017-09-09 09:28] LABS: BASOPHILS % (AUTO) 0.6 % (0.0-2.0); EOSINOPHILS % (AUTO) 0.4 % (0.0-3.0); HEMATOCRIT 34.2 % (42.0-52.0); HEMOGLOBIN 11.1 G/DL (14.2-18.0); LYMPHOCYTES % (AUTO) 19.4 % (20.0-45.0); MEAN CORPUSCULAR VOLUME 83 FL (80-99); MONOCYTES % (AUTO) 13.7 % (1.0-10.0); NEUTROPHILS % (AUTO) 65.9 % (45.0-75.0); PLATELET COUNT 209 K/UL (150-450); RED BLOOD COUNT 4.11 M/UL (4.70-6.10); RED CELL DISTRIBUTION WIDTH 15.6 % (11.6-14.8); WHITE BLOOD COUNT 10.7 K/UL (4.8-10.8)
[2017-09-09 10:05] LABS: ALANINE AMINOTRANSFERASE 24 U/L (12-78); ALBUMIN 2.5 G/DL (3.4-5.0); ALBUMIN/GLOBULIN RATIO 0.6 (1.0-2.7); ALKALINE PHOSPHATASE 69 U/L (46-116); ANION GAP 8 mmol/L (5-15); ASPARTATE AMINO TRANSFERASE 19 U/L (15-37); BILIRUBIN,TOTAL 0.6 MG/DL (0.2-1.0); BLOOD UREA NITROGEN 16 mg/dL (7-18); CALCIUM 8.3 MG/DL (8.5-10.1); CARBON DIOXIDE 26 MMOL/L (21-32); CHLORIDE 106 MMOL/L (98-107); CREATININE 1.7 MG/DL (0.55-1.30); POTASSIUM 3.5 MMOL/L (3.5-5.1); SODIUM 140 MMOL/L (136-145)
[2017-09-09 12:00] VITALS: BP 135/77
[2017-09-09 16:00] VITALS: BP 149/74
--- NOTE | 2017-09-09 16:28 | Cardiology Report ---
APPROVED REPORT EKG Measurement Heart [id number] HI 146P48 [id number] Normal sinus rhythm Normal ECG
[2017-09-09 20:00] VITALS: BP 127/61
[2017-09-10] VITALS: BP 130/57
[2017-09-10] MEDS: Piperacillin/Tazobactam 3.375 GM in NS 110 ML IVPB SCH ×3 (02:17→18:55)
--- NOTE | 2017-09-10 03:45 | Progress Note ---
DATE: 09/09/2017 INTERNAL MEDICINE AND CARDIOLOGY PROGRESS NOTE SUBJECTIVE: No new complaints. Tolerating oral intake. Feels weak and unsteady on his feet. Urine culture is positive for gram-negative rods. OBJECTIVE: VITAL SIGNS: Afebrile. Blood pressure 149/74, pulse 64, and respirations 18. LUNGS: Clear. CARDIAC: Regular. ABDOMEN: Soft, nontender. EXTREMITIES: No edema. LABORATORY DATA: Reviewed. IMPRESSION: 1. Urinary tract infection. 2. Sepsis. 3. Metabolic and toxic encephalopathies. 4. Resolving leukocytosis. 5. Microcytic anemia. PLAN: 1. Follow up final cultures. 2. Adjust antibiotics once available. 3. Decrease intravenous fluids. 4. PT, OT evaluations. 5. We will follow. Cuauhtemoc Boyd M.D. DR: CHANCE JOB#: [id number] CC:
[2017-09-10 04:00] VITALS: BP 140/71
[2017-09-10 08:00] VITALS: BP 138/66
[2017-09-10 08:39] LABS: BASOPHILS % (AUTO) 0.7 % (0.0-2.0); EOSINOPHILS % (AUTO) 1.1 % (0.0-3.0); HEMATOCRIT 40.1 % (42.0-52.0); HEMOGLOBIN 12.8 G/DL (14.2-18.0); LYMPHOCYTES % (AUTO) 25.9 % (20.0-45.0); MEAN CORPUSCULAR VOLUME 83 FL (80-99); MONOCYTES % (AUTO) 12.4 % (1.0-10.0); NEUTROPHILS % (AUTO) 59.9 % (45.0-75.0); PLATELET COUNT 219 K/UL (150-450); RED BLOOD COUNT 4.84 M/UL (4.70-6.10); RED CELL DISTRIBUTION WIDTH 14.9 % (11.6-14.8); WHITE BLOOD COUNT 8.3 K/UL (4.8-10.8)
[2017-09-10 09:19] LABS: ALANINE AMINOTRANSFERASE 43 U/L (12-78); ALBUMIN 2.8 G/DL (3.4-5.0); ALBUMIN/GLOBULIN RATIO 0.7 (1.0-2.7); ALKALINE PHOSPHATASE 88 U/L (46-116); ANION GAP 10 mmol/L (5-15); ASPARTATE AMINO TRANSFERASE 33 U/L (15-37); BILIRUBIN,TOTAL 0.4 MG/DL (0.2-1.0); BLOOD UREA NITROGEN 13 mg/dL (7-18); CARBON DIOXIDE 25 MMOL/L (21-32); CHLORIDE 105 MMOL/L (98-107); CREATININE 1.5 MG/DL (0.55-1.30); POTASSIUM 3.7 MMOL/L (3.5-5.1); SODIUM 140 MMOL/L (136-145)
--- NOTE | 2017-09-10 09:37 | Cardiology Report ---
APPROVED REPORT EXAM: Two-dimensional and M-mode echocardiogram with Doppler and color Doppler. INDICATION Hypertension M-Mode DIMENSIONS IVSd1.4 (0.7-1.1cm)Left Atrium (MM)4.0 (1.6-4.0cm) LVDd5.2 (3.5-5.6cm)Aortic Root3.3 (2.0-3.7cm) PWd0.7 (0.7-1.1cm)Aortic Cusp Exc.1.5 (1.5-2.0cm) LVDs3.2 (2.5-4.0cm) PWs1.3 cm Normal left ventricular chamber size, systolic function and wall motion. Left ventricular ejection fraction estimated to be 60-65%. No evidence of left ventricular hypertrophy. No evidence of pericardial or pleural effusion. Right cardiac chamber sizes are within normal limits. Mild left atrial enlargement by 2D. Focal aortic valve sclerosis with adequate cusp excursion. Thickened mitral valve leaflets with normal excursion. Mild mitral annulus and aortic root calcification. Pulmonic valve not well visualized. Normal tricuspid valve structure. IVC is normal in size and collapsible with respiration. A color flow and spectral Doppler study was performed and revealed: Mild aortic regurgitation. No mitral regurgitation. Mitral diastolic velocities suggest reduced left ventricular relaxation c/w diastolic dysfunction grade 1. No tricuspid regurgitation.
[2017-09-10] MEDS: Vitamin D 1000 IU Tab ORAL SCH (09:45)
[2017-09-10] MEDS: Heparin 5000 units/ml inj SUBQ SCH ×2 (09:49→20:55)
[2017-09-10 09:58] LABS: % IRON SATURATION 7 % (15-50); IRON 17 ug/dL (50-175); TOTAL IRON BINDING CAPACITY 256 ug/dL (250-450)
[2017-09-10 12:00] VITALS: BP 137/72
[2017-09-10] MEDS ORDERED: Vancomycin 750mg/NS 250ml IVPB SCH (14:00)
[2017-09-10 16:00] VITALS: BP 136/70
--- NOTE | 2017-09-10 16:41 | Diagnostic Imaging Report ---
Indications: Chest pain Technique: IV administration 5.4 mCi 99m technetium macroaggregated albumin. Images obtained over the lungs in multiple projections. Previously, patient inhaled 40 mCi aerosolized 99M technetium DTPA. Images obtained over the lungs in multiple projections Comparison: Reference made to chest radiograph dated 09/08/2017 Findings: There is slight heterogeneity to the volar perfusion, but no segmental or subsegmental perfusion defects are demonstrated. Unremarkable ventilation. No ventilation/perfusion mismatch Impression: Findings are deemed low probability for pulmonary embolus
[2017-09-10 20:00] VITALS: BP 148/75
[2017-09-11] VITALS: BP 142/76
--- NOTE | 2017-09-11 02:15 | Progress Note ---
DATE: 09/10/2017 SUBJECTIVE: No new complaints. Appetite improved, but still marginal. Afebrile. Urine culture is positive for E. coli, sensitive to most antibiotics. OBJECTIVE: VITAL SIGNS: Blood pressure 137/72, pulse 72, respirations 18, and room air oxygen 97%. LUNGS: Clear. CARDIAC: Regular. ABDOMEN: Soft. EXTREMITIES: Without edema. IMPRESSION: 1. Urinary tract infection with sepsis, improving. 2. Metabolic encephalopathy and toxic encephalopathy, improving. 3. Dehydration and hypovolemia, corrected. 4. Functional decline. PLAN: 1. Decrease IV fluids now. 2. Antibiotic spectrum. 3. Mobilize. 4. Possible detention stay for short course of rehabilitation. 5. Maintain therapeutic electrolyte levels. Cuauhtemoc Boyd M.D. DR: YISEL JOB#: [id number] CC:
[2017-09-11 04:00] VITALS: BP_SYST 142; BP_SYST 144; BP_DIAS 67; BP_DIAS 76
[2017-09-11] MEDS ORDERED: ceFAZolin sod 1 GM in D5W 55 ML IVPB SCH (06:00)
[2017-09-11 08:00] VITALS: BP 124/64
[2017-09-11] MEDS: Vitamin D 1000 IU Tab ORAL SCH (09:34)
[2017-09-11] MEDS: Heparin 5000 units/ml inj SUBQ SCH (09:37)
[2017-09-11 12:00] VITALS: BP 130/58
[2017-09-11] MEDS ORDERED: ceFAZolin sod 1 GM in NS 55 ML IVPB SCH (14:00)
[2017-09-11 16:00] VITALS: BP 140/71
[2017-09-11] MEDS ORDERED: Cephalexin 500mg cap ORAL SCH (18:00)
[2017-09-11] MEDS ORDERED: Tubing IV Secondary IV ONE (18:30)
[2017-09-11] MEDS ORDERED: Iron Sucrose 100 MG in NS 55 ML IV SCH ×3 (21:00)
--- NOTE | 2017-09-13 12:07 | Discharge Summary ---
Discharge Summary Hospital Course Date of Admission Sep 08, 2017 at 10:51 Date of Discharge Sep 11, 2017 at 18:31 Admitting Diagnosis SYNCOPE HPI William Cooley is a 82 year old male who was admitted on Sep 08, 2017 at 10:51 for Syncope Hospital Course [id number] Discharge Discharge Disposition Patient was discharged to SNF/Subacute Facility(03) Discharge Diagnoses: Sabine Cooper NP Sep 13, 2017 12:07
--- NOTE | 2017-09-14 01:00 | Discharge Summary 2 SIG ---
DATE OF ADMISSION: 09/08/2017 DATE OF DISCHARGE: 09/11/2017 BRIEF HOSPITAL COURSE: The patient is an 82-year-old male, who felt lightheaded and dizzy and almost passed out in his bathroom. The patient did not fall or hurt himself. He had full recollection of details. He came to emergency room for evaluation. He has medical history significant for hypertension, type 2 diabetes mellitus, BPH, and cerebrovascular disease with dementia. Evaluation at ED showed a white count of 18, hemoglobin 13, BUN was 24, creatinine was 1.9. Lactic acid was 1.6. Troponin was negative. Urinalysis with 20 to 30 white cells and moderate bacteria. He had an EKG done that showed nonspecific ST-T wave changes, ventricular rate of 75. Chest x-ray showed no acute process. He was admitted to telemetry for evaluation of urinary tract infection with sepsis and hypovolemia and dehydration. He was pancultured and was given IV fluids. He was started empirically on broad-spectrum antibiotics. The patient felt weak and unsteady on his feet. He was given PT and OT. Urine culture showed E. coli sensitive to most antibiotics. He was given Ancef. His IV fluid was decreased. [facility] was [facility]. FINAL DIAGNOSES: 1. Urinary tract infection with sepsis, improving. 2. Acute toxic metabolic encephalopathy, improving. 3. Dehydration and hypovolemia corrected. 4. Functional decline. 5. Microcytic anemia. 6. Acute on chronic kidney injury with prerenal azotemia. 7. Mild protein-calorie malnutrition. 8. Type 2 diabetes mellitus with hyperglycemia. 9. History of hypertension, now with low range blood pressure. 10. Syncope likely due to hypovolemia and orthostasis. DISPOSITION: The patient was discharged to [facility]. Cuauhtemoc Boyd M.D. I have been assigned to dictate discharge summary on this account and I was not involved in the patient's management. Sabine Cooper N.P. DR: RAGHU JOB#: [id number] CC: YUDI
== END 2017-09-11 18:31 | DRG 871 ==
LOC: EDBD 06:13 → EMR 06:54 → EDBEDREQ 08:39 → 2E 10:51
DX: A41.9 Sepsis, unspecified organism (principal); G92 Toxic encephalopathy; G93.41 Metabolic encephalopathy; N17.9 Acute kidney failure, unspecified; N39.0 Urinary tract infection, site not specified; E44.1 Mild protein-calorie malnutrition; E11.65 Type 2 diabetes mellitus with hyperglycemia; R55 Syncope and collapse; D50.9 Iron deficiency anemia, unspecified; E86.0 Dehydration; I12.9 Hypertensive chronic kidney disease with stage 1 through stage 4 chronic kidney disease, or unspecified chronic kidney disease; N18.9 Chronic kidney disease, unspecified; N40.0 Benign prostatic hyperplasia without lower urinary tract symptoms; F01.50 Vascular dementia, unspecified severity, without behavioral disturbance, psychotic disturbance, mood disturbance, and anxiety; B96.20 Unspecified Escherichia coli [E. coli] as the cause of diseases classified elsewhere; E86.1 Hypovolemia; D64.9 Anemia, unspecified
CPT/HCPCS: 36415; 71045; 78579; 78580; 80053; 80202; 81003; 82270; 82550; 82553; 83540; 83550; 83605; 83735; 84484; 85007; 85025; 85379; 87040; 87086; 87181; 93005; 93306; 93970; 99285; A9503; J8499

== ENCOUNTER 2017-11-24 15:08 | Inpatient (IN) | payer MEDICARE, OTHER ==
[~2017-11-24] VITALS: Ht 170.2 cm; Wt 80.3 kg
[~2017-11-24 15:08] MED LIST changes: +LISINOPRIL-HCT1 EACH ORAL; +VITAMIN D1000 UNI1 ORAL
[2017-11-24 15:14] VITALS: BP 165/62
[2017-11-24] MEDS ORDERED: Cefepime HCl 1 GM in NS 55 ML IV STA (15:19)
[2017-11-24] MEDS ORDERED: Lisinopril 10mg tab ORAL ONE (15:30)
--- NOTE | 2017-11-24 15:44 | Emergency Room Report ---
History of Present Illness General Chief Complaint: Multiple Trauma/Fall Source: Patient, EMS Present Illness HPI Paramedics brought this patient from home after an alleged fall. The medics were uncertain of the details. The patient does have a glass cleaning machine tender at home. He has a history of encephalopathy and is unable to tell us the details aside from that he feels weak. He denies pain at this time. He can't tell us if he lost consciousness. He has some food stuff around his mouth. He denies vomiting. Paramedics state that the caretakers did not give him his morning blood pressure medicine. In the past patient has been admitted for urinary tract infection and sepsis. He was last admitted in August of this year. Allergies: Coded Allergies: No Known Allergies (Unverified , 09/08/17) Patient History Limited by: medical condition Past Medical History: see triage record, old chart reviewed Social History: Denies: smoking - prior Social History Narrative home with glass cleaning machine tender Reviewed Nursing Documentation: PMH: Agreed; PSxH: Agreed Nursing Documentation-PMH Past Medical History: No History, Except For Hx Cardiac Problems: Yes - hearing problem Hx Hypertension: Yes Hx Diabetes: Yes Hx Cancer: No Hx Gastrointestinal Problems: No Hx Neurological Problems: Yes - encephalopathy Hx Cerebrovascular Accident: Yes Hx Dementia: Yes Review of Systems All Other Systems: limited Physical Exam Vital Signs Date Time Temp Pulse Resp B/P (MAP) Pulse Ox O2 Delivery O2 Flow Rate FiO2 11/24/17 15:08 98.7 106 20 165/62 97 Room Air 98.8 Sp02 EP Interpretation: reviewed, normal General Appearance: well appearing, no apparent distress, alert, other - GCS 14 Head: normocephalic Eyes: bilateral eye normal inspection, bilateral eye PERRL ENT: moist mucus membranes - Poor dentition Neck: supple Respiratory: lungs clear, normal breath sounds Cardiovascular #1: regular rate, rhythm Cardiovascular #2: 2+ radial (R) Gastrointestinal: normal inspection, normal bowel sounds, non tender, no mass, other - Protuberant Musculoskeletal: back normal, gait/station normal, normal range of motion Neurologic: alert, responsive, visual supervisor III-XII nml as tested, motor strength/tone normal, DTRs symmetric, sensory intact, other - Halting speech, oriented - 1 Psychiatric: mood/affect normal Skin: warm/dry, other - Hot to touch Medical Decision Making Diagnostic Impression: Primary Impression: Sepsis Qualified Codes: A41.9 - Sepsis, unspecified organism Additional Impressions: UTI (urinary tract infection) Qualified Codes: N39.0 - Urinary tract infection, site not specified Renal insufficiency ER Course Patient presents after a fall. His exam is nonfocal and stroke is not suspected. He does have a history of encephalopathy and therefore history is limited. He's hot to the touch and therefore infection is high on the list. There is no focality therefore CT the head is not indicated. He denies pain and there is good range of motion of all extremities and no tenderness in his back which suggests that there is no acute fracture. Differential includes sepsis, dehydration, pneumonia, urinary tract infection. His lungs are clear and therefore UTIs high in the list. The patient will be treated with IV hydration, Tylenol and antibiotics. In addition he'll be evaluated with a sepsis workup including blood cultures, lactate and other labs. Apparently he did not take his blood pressure medicines morning and he will be given lisinopril and amlodipine. Blood pressure medicines were held because his blood pressure spontaneously came down with treatment. EKG reveals no injury. Chest x-ray is basically clear. Labs are significant for elevated white count,'s renal insufficiency and pyuria with urine positive for nitrites. Patient's lactate was 2.1. Patient is improved with IV hydration, Tylenol and antibiotics. His mentation is improved. He still has a nonfocal neurologic exam. Patient is admitted to the hospital telemetry the diagnosis of sepsis from a urinary source. Dr. Boyd was contacted for the admission. Laboratory Tests Test 11/24/17 15:20 11/24/17 16:06 11/24/17 17:35 White Blood Count 14.0 K/UL (4.8-10.8) H Red Blood Count 5.62 M/UL (4.70-6.10) Hemoglobin 15.1 G/DL (14.2-18.0) Hematocrit 46.4 % (42.0-52.0) Mean Corpuscular Volume 82 FL (80-99) Mean Corpuscular Hemoglobin 26.8 PG (27.0-31.0) L Mean Corpuscular Hemoglobin Concent 32.5 G/DL (32.0-36.0) Red Cell Distribution Width 14.8 % (11.6-14.8) Platelet Count 151 K/UL (150-450) Mean Platelet Volume 8.0 FL (6.5-10.1) Neutrophils (%) (Auto) 80.1 % (45.0-75.0) H Lymphocytes (%) (Auto) 6.7 % (20.0-45.0) L Monocytes (%) (Auto) 11.7 % (1.0-10.0) H Eosinophils (%) (Auto) 0.0 % (0.0-3.0) Basophils (%) (Auto) 1.5 % (0.0-2.0) Prothrombin Time 10.0 SEC (9.30-11.50) Prothrombin Time INR 1.0 (0.9-1.1) PTT 23 SEC (23-33) Sodium Level 140 MMOL/L (136-145) Potassium Level 4.0 MMOL/L (3.5-5.1) Chloride Level 104 MMOL/L (98-107) Carbon Dioxide Level 26 MMOL/L (21-32) Anion Gap 10 mmol/L (5-15) Blood Urea Nitrogen 22 mg/dL (7-18) H Creatinine 1.8 MG/DL (0.55-1.30) H Estimate Glomerular Filtration Rate mL/min (>60) Glucose Level 152 MG/DL (74-106) H Lactic Acid Level 2.10 mmol/L (0.66-2.22) Pending Calcium Level 8.9 MG/DL (8.5-10.1) Total Bilirubin 0.5 MG/DL (0.2-1.0) Aspartate Amino Transferase (AST) 12 U/L (15-37) L Alanine Aminotransferase (ALT) 20 U/L (12-78) Alkaline Phosphatase 75 U/L (46-116) Total Creatine Kinase 102 U/L (26-308) Troponin I 0.000 ng/mL (0.000-0.056) Pro-B-Type Natriuretic Peptide 445 pg/mL (0-125) H Total Protein 7.8 G/DL (6.4-8.2) Albumin 3.6 G/DL (3.4-5.0) Globulin 4.2 g/dL Albumin/Globulin Ratio 0.9 (1.0-2.7) L Urine Color Pale yellow Urine Appearance Slightly cloudy Urine pH 5 (4.5-8.0) Urine Specific [place] 1.015 (1.005-1.035) Urine Protein 2+ (NEGATIVE) H Urine Glucose (UA) Negative (NEGATIVE) Urine Ketones Negative (NEGATIVE) Urine Occult Blood 5+ (NEGATIVE) H Urine Nitrite Positive (NEGATIVE) H Urine Bilirubin Negative (NEGATIVE) Urine Urobilinogen Normal MG/DL (0.0-1.0) Urine Leukocyte Esterase 2+ (NEGATIVE) H Urine RBC 10-15 /HPF (0 - 0) H Urine WBC 20-30 /HPF (0 - 0) H Urine Squamous Epithelial Cells Occasional /LPF Urine Amorphous Sediment Moderate /LPF (NONE) H Urine Bacteria Moderate /HPF (NONE) H EKG Diagnostic Results Rate: normal Rhythm: NSR ST Segments: no acute changes Rhythm Strip Diag. Results EP Interpretation: yes Rhythm: NSR, no PVC's, no ectopy Chest X-Ray Diagnostic Results Chest X-Ray Diagnostic Results : Chest X-Ray Ordered: Yes # of Views/Limited/Complete: 1 View Indication: Other EP Interpretation: Yes Interpretation: no consolidation, no effusion, no pneumothorax Impression: Other Electronically Signed by: Electronically signed by Cuauhtemoc Rowley MD Last Vital Signs Date Time Temp Pulse Resp B/P (MAP) Pulse Ox O2 Delivery O2 Flow Rate FiO2 11/24/17 17:14 99.9 81 25 145/63 99 Room Air 99.9 Status: improved Disposition: ADMITTED INPATIENT Condition: Serious Referrals: NOT CHOSEN MAYANK/,REFERRING (PCP) Cuauhtemoc Rowley M.D. November 24, 2017 15:44
--- NOTE | 2017-11-24 15:48 | Diagnostic Imaging Report ---
EXAM: XR Chest, 1 View CLINICAL HISTORY: ALOC TECHNIQUE: Frontal view of the chest. COMPARISON: Chest x-ray dated 09/08/17 FINDINGS: Lungs: Mildly increased interstitial markings likely related to mild pulmonary vascular congestion. The lungs are otherwise clear without focal consolidation. Pleural space: Unremarkable. No pneumothorax. Heart: Unremarkable. No cardiomegaly. Mediastinum: Unremarkable. Bones/joints: Unremarkable. Tubes, lines and devices: EKG leads overlie the thorax. IMPRESSION: Mildly increased interstitial markings likely related to mild pulmonary vascular congestion.
[2017-11-24 15:51] LABS: BASOPHILS % (AUTO) 1.5 % (0.0-2.0); HEMATOCRIT 46.4 % (42.0-52.0); HEMOGLOBIN 15.1 G/DL (14.2-18.0); LYMPHOCYTES % (AUTO) 6.7 % (20.0-45.0); MEAN CORPUSCULAR VOLUME 82 FL (80-99); MONOCYTES % (AUTO) 11.7 % (1.0-10.0); NEUTROPHILS % (AUTO) 80.1 % (45.0-75.0); PLATELET COUNT 151 K/UL (150-450); RED BLOOD COUNT 5.62 M/UL (4.70-6.10); RED CELL DISTRIBUTION WIDTH 14.8 % (11.6-14.8)
[2017-11-24 15:59] LABS: ANION GAP 10 mmol/L (5-15); BLOOD UREA NITROGEN 22 mg/dL (7-18); CALCIUM 8.9 MG/DL (8.5-10.1); CARBON DIOXIDE 26 MMOL/L (21-32); CHLORIDE 104 MMOL/L (98-107); CREATININE 1.8 MG/DL (0.55-1.30); SODIUM 140 MMOL/L (136-145)
[2017-11-24 16:09] LABS: ALANINE AMINOTRANSFERASE 20 U/L (12-78); ALBUMIN 3.6 G/DL (3.4-5.0); ALBUMIN/GLOBULIN RATIO 0.9 (1.0-2.7); ALKALINE PHOSPHATASE 75 U/L (46-116); ASPARTATE AMINO TRANSFERASE 12 U/L (15-37); BILIRUBIN,TOTAL 0.5 MG/DL (0.2-1.0); CREATINE KINASE 102 U/L (26-308)
[2017-11-24 16:19] LABS: APPEARANCE,URINE SLIGHTLY CLOUDY; BILIRUBIN, URINE NEGATIVE (NEGATIVE); COLOR,URINE PALE YELLOW; GLUCOSE, URINE (UA) NEGATIVE (NEGATIVE); KETONES,URINE NEGATIVE (NEGATIVE); LEUKOCYTE ESTERASE ,URINE 2+ (NEGATIVE); NITRITE,URINE POSITIVE (NEGATIVE); PH,URINE 5 (4.5-8.0); PROTEIN,URINE 2+ (NEGATIVE); UROBILINOGEN,URINE NORMAL MG/DL (0.0-1.0)
[2017-11-24 17:14] VITALS: BP 145/63
[2017-11-24 20:00] VITALS: BP 173/80
[2017-11-24 21:30] VITALS: BP 187/93
[2017-11-24] MEDS: Piperacillin/Tazobactam 3.375 GM in NS 110 ML IVPB SCH (22:48)
[2017-11-25] VITALS: BP 143/68
[2017-11-25] MEDS: Heparin 5000 units/ml inj SUBQ SCH ×3 (00:05→21:00)
[2017-11-25 04:00] VITALS: BP 159/80
[2017-11-25] MEDS: Piperacillin/Tazobactam 3.375 GM in NS 110 ML IVPB SCH ×3 (05:31→21:30)
[2017-11-25 08:00] VITALS: BP 164/73
[2017-11-25 08:09] LABS: BASOPHILS % (AUTO) 0.9 % (0.0-2.0); EOSINOPHILS % (AUTO) 0.1 % (0.0-3.0); HEMATOCRIT 41.7 % (42.0-52.0); HEMOGLOBIN 13.3 G/DL (14.2-18.0); LYMPHOCYTES % (AUTO) 14.8 % (20.0-45.0); MEAN CORPUSCULAR VOLUME 84 FL (80-99); MONOCYTES % (AUTO) 14.4 % (1.0-10.0); NEUTROPHILS % (AUTO) 69.9 % (45.0-75.0); PLATELET COUNT 130 K/UL (150-450); RED BLOOD COUNT 4.96 M/UL (4.70-6.10); RED CELL DISTRIBUTION WIDTH 14.6 % (11.6-14.8); WHITE BLOOD COUNT 10.6 K/UL (4.8-10.8)
[2017-11-25] MEDS: Lisinopril 10mg tab ORAL SCH (08:13)
[2017-11-25] MEDS: Aspirin Baby 81mg ORAL SCH (08:13)
[2017-11-25] MEDS: hydroCHLOROthiazide 12.5mg TAB ORAL SCH (08:14)
[2017-11-25 08:35] LABS: ALANINE AMINOTRANSFERASE 18 U/L (12-78); ALBUMIN 2.8 G/DL (3.4-5.0); ALBUMIN/GLOBULIN RATIO 0.7 (1.0-2.7); ALKALINE PHOSPHATASE 62 U/L (46-116); ANION GAP 8 mmol/L (5-15); ASPARTATE AMINO TRANSFERASE 16 U/L (15-37); BILIRUBIN,TOTAL 0.8 MG/DL (0.2-1.0); BLOOD UREA NITROGEN 15 mg/dL (7-18); CALCIUM 8.2 MG/DL (8.5-10.1); CARBON DIOXIDE 25 MMOL/L (21-32); CHLORIDE 106 MMOL/L (98-107); CREATININE 1.5 MG/DL (0.55-1.30); POTASSIUM 3.6 MMOL/L (3.5-5.1); SODIUM 139 MMOL/L (136-145)
--- NOTE | 2017-11-25 09:30 | History and Physical Report ---
DATE OF ADMISSION: 11/24/2017 CHIEF COMPLAINT: Syncope and possible sepsis. HISTORY OF PRESENT ILLNESS: The patient is an 82-year-old male. He has a history of hypertension, BPH, diabetes, who presented from home after a mechanical fall versus syncopal episode. The patient is a poor historian. He states that he slipped and fell, who presented to the emergency room. There, he was noted to have fever and elevated white count of 14,000 and an elevated creatinine of 1.8. He had the evidence of on his urinalysis of urine infection. The patient has been started on broad-spectrum IV antibiotic therapy. He is now admitted for further evaluation and care. PAST MEDICAL HISTORY: As above. PAST SURGICAL HISTORY: None. CURRENT MEDICATIONS: Reviewed. ALLERGIES: None. FAMILY HISTORY: None. SOCIAL HISTORY: Negative for tobacco, ethanol, or drugs. REVIEW OF SYSTEMS: GENERAL: Positive fevers and chills. No night sweats. HEENT: No headaches or visual changes. CARDIOPULMONARY: No chest pain or shortness of breath. GASTROINTESTINAL: No nausea or vomiting. GENITOURINARY: No urgency or frequency. MUSCULOSKELETAL: No joint pain or swelling. NEUROLOGIC: No evidence of seizures. PHYSICAL EXAMINATION: VITAL SIGNS: Temperature 100.5, pulse 74, respirations 20, and blood pressure 164/73. GENERAL: The patient is a well-developed, slightly disheveled male, in no apparent distress. HEART: Regular rate and rhythm. LUNGS: Clear. ABDOMEN: Soft, nontender, nondistended. EXTREMITIES: Without clubbing or cyanosis. LABORATORY AND DIAGNOSTIC DATA: White count 14,000, hemoglobin 15, hematocrit 46, and platelets of 151. Sodium 140, BUN 22, and creatinine 1.8. Troponin was negative. Lactic acid level was 2.1. Coags normal. UA showed 20 to 30 wbc's. Chest x-ray showed increased interstitial markings. ASSESSMENT: This is a pleasant male, admitted with complaints of a fall suspect secondary to urinary tract infection. 1. Urinary tract infection. 2. Sepsis. 3. Diabetes. 4. Hypertension. PLAN: IV antibiotics. Gentle hydration. Follow up cultures. Continue outpatient cardiac regimen. PT/OT evaluations. Matias Stallworth M.D. DR: RADHA JOB#: [id number] CC:
[2017-11-25] MEDS ORDERED: Vancomycin 1250mg/D5W 250ml IVPB ONE (10:00)
[2017-11-25 12:00] VITALS: BP 128/73
[2017-11-25 16:00] VITALS: BP 143/60
[2017-11-25] MEDS ORDERED: Tubing IV Secondary IV ONE (16:30)
[2017-11-25 20:00] VITALS: BP 146/68
[2017-11-26] VITALS: BP 129/56
[2017-11-26 04:00] VITALS: BP 137/68
[2017-11-26] MEDS: Piperacillin/Tazobactam 3.375 GM in NS 110 ML IVPB SCH ×3 (05:42→21:53)
[2017-11-26 08:00] VITALS: BP 132/59
[2017-11-26] MEDS: Heparin 5000 units/ml inj SUBQ SCH ×2 (09:00→21:00)
[2017-11-26] MEDS: Aspirin Baby 81mg ORAL SCH (09:04)
[2017-11-26] MEDS: Lisinopril 10mg tab ORAL SCH (09:04)
[2017-11-26] MEDS: hydroCHLOROthiazide 12.5mg TAB ORAL SCH (09:05)
[2017-11-26 09:43] LABS: ALANINE AMINOTRANSFERASE 26 U/L (12-78); ALBUMIN 2.5 G/DL (3.4-5.0); ALBUMIN/GLOBULIN RATIO 0.7 (1.0-2.7); ALKALINE PHOSPHATASE 58 U/L (46-116); ANION GAP 8 mmol/L (5-15); ASPARTATE AMINO TRANSFERASE 20 U/L (15-37); BILIRUBIN,TOTAL 0.4 MG/DL (0.2-1.0); BLOOD UREA NITROGEN 14 mg/dL (7-18); CALCIUM 8.3 MG/DL (8.5-10.1); CARBON DIOXIDE 25 MMOL/L (21-32); CHLORIDE 107 MMOL/L (98-107); CREATININE 1.5 MG/DL (0.55-1.30); POTASSIUM 3.5 MMOL/L (3.5-5.1); SODIUM 140 MMOL/L (136-145)
[2017-11-26] MEDS: Vancomycin 750mg/NS 250ml IVPB SCH (10:22)
[2017-11-26 12:00] VITALS: BP 130/60
[2017-11-26 16:00] VITALS: BP 130/58
[2017-11-26 20:00] VITALS: BP 139/60
--- NOTE | 2017-11-26 22:45 | Progress Note ---
DATE: 11/26/2017 CARDIOLOGY PROGRESS NOTE SUBJECTIVE: No new complaints. More alert. OBJECTIVE: VITAL SIGNS: Blood pressure 130/58, heart rate 45 to 52, respiratory rate 18, and afebrile. NECK: Supple. LUNGS: Clear. CARDIAC: Regular rhythm. Slow rate. Normal S1 and S2. ABDOMEN: Soft. No edema. LABORATORY DATA: Urine culture is positive for Pseudomonas aeruginosa. IMPRESSION: 1. Pseudomonas urinary tract infection with sepsis. 2. Sinus bradycardia due to medications namely clonidine. 3. Hypertensive heart disease. 4. Toxic and metabolic encephalopathy improving. 5. Hypertensive heart disease. PLAN: 1. Discontinue clonidine. 2. Continue IV antimicrobials for Pseudomonas aeruginosa infection. 3. Adjust IV fluids. 4. Mobilize discharge planning to follow. Cuauhtemoc Boyd M.D. DR: Park JOB#: [id number] CC:
--- NOTE | 2017-11-26 23:16 | Cardiology Report ---
APPROVED REPORT EKG Measurement Heart [id number] CT [id number] Sinus rhythm with occasional premature ventricular complexes Inferior infarct, age undetermined Abnormal ECG
[2017-11-27] VITALS: BP 143/63
[2017-11-27 04:00] VITALS: BP 150/76
[2017-11-27] MEDS: Piperacillin/Tazobactam 3.375 GM in NS 110 ML IVPB SCH ×3 (05:30→21:31)
[2017-11-27 08:00] VITALS: BP 139/62
[2017-11-27] MEDS: Heparin 5000 units/ml inj SUBQ SCH ×2 (09:00→21:00)
[2017-11-27] MEDS: Aspirin Baby 81mg ORAL SCH (09:45)
[2017-11-27] MEDS: hydroCHLOROthiazide 12.5mg TAB ORAL SCH (09:46)
[2017-11-27] MEDS: Lisinopril 10mg tab ORAL SCH (09:47)
[2017-11-27] MEDS: Vancomycin 750mg/NS 250ml IVPB SCH (09:48)
[2017-11-27 12:00] VITALS: BP 123/55
[2017-11-27 16:00] VITALS: BP 132/57
[2017-11-27 20:00] VITALS: BP 149/67
[2017-11-28] VITALS: BP 152/68
[2017-11-28 04:00] VITALS: BP 151/70
[2017-11-28] MEDS: Piperacillin/Tazobactam 3.375 GM in NS 110 ML IVPB SCH ×2 (05:31→13:20)
--- NOTE | 2017-11-28 06:30 | Progress Note ---
DATE: 11/26/2017 CARDIOLOGY PROGRESS NOTE SUBJECTIVE: No other complaints and he is on IV antibiotics. OBJECTIVE: VITAL SIGNS: Blood pressure 149/67, heart rate now in the range of 50 to 68, no pauses. NECK: Supple. LUNGS: Clear. CARDIAC: Regular. Normal S1 and S2. Occasional bradycardia that is asymptomatic. ABDOMEN: Soft. EXTREMITIES: No edema. IMPRESSION: 1. Toxic and metabolic encephalopathy. 2. UTI due to Pseudomonas aeruginosa. 3. Benign prostatic hypertrophy. 4. Hypertensive heart disease. 5. Sinus bradycardia. PLAN: Remain off clonidine. Continue antimicrobials. Mobilize. Discharge planning. Cuauhtemoc Boyd M.D. DR: MARCUS JOB#: [id number] CC:
[2017-11-28 08:00] VITALS: BP 149/73
[2017-11-28] MEDS: Heparin 5000 units/ml inj SUBQ SCH (09:00)
[2017-11-28] MEDS: hydroCHLOROthiazide 12.5mg TAB ORAL SCH (09:46)
[2017-11-28] MEDS: Aspirin Baby 81mg ORAL SCH (09:46)
[2017-11-28] MEDS: Lisinopril 10mg tab ORAL SCH (09:47)
[2017-11-28] MEDS: Vancomycin 750mg/NS 250ml IVPB SCH (09:48)
[2017-11-28 10:09] LABS: BASOPHILS % (AUTO) 0.6 % (0.0-2.0); EOSINOPHILS % (AUTO) 2.6 % (0.0-3.0); HEMATOCRIT 42.1 % (42.0-52.0); HEMOGLOBIN 13.3 G/DL (14.2-18.0); LYMPHOCYTES % (AUTO) 28.3 % (20.0-45.0); MEAN CORPUSCULAR VOLUME 84 FL (80-99); MONOCYTES % (AUTO) 11.3 % (1.0-10.0); NEUTROPHILS % (AUTO) 57.2 % (45.0-75.0); PLATELET COUNT 156 K/UL (150-450); RED BLOOD COUNT 5.02 M/UL (4.70-6.10); RED CELL DISTRIBUTION WIDTH 14.1 % (11.6-14.8); WHITE BLOOD COUNT 6.2 K/UL (4.8-10.8)
[2017-11-28 10:27] LABS: ALANINE AMINOTRANSFERASE 43 U/L (12-78); ALBUMIN 2.5 G/DL (3.4-5.0); ALBUMIN/GLOBULIN RATIO 0.6 (1.0-2.7); ALKALINE PHOSPHATASE 71 U/L (46-116); ANION GAP 8 mmol/L (5-15); ASPARTATE AMINO TRANSFERASE 21 U/L (15-37); BILIRUBIN,TOTAL 0.4 MG/DL (0.2-1.0); BLOOD UREA NITROGEN 15 mg/dL (7-18); CALCIUM 8.5 MG/DL (8.5-10.1); CARBON DIOXIDE 27 MMOL/L (21-32); CHLORIDE 106 MMOL/L (98-107); CREATININE 1.4 MG/DL (0.55-1.30); POTASSIUM 3.3 MMOL/L (3.5-5.1); SODIUM 141 MMOL/L (136-145)
[2017-11-28 12:00] VITALS: BP 138/68
[2017-11-28] MEDS ORDERED: Levofloxacin 500mg tab ORAL SCH (14:00)
[2017-11-29] MEDS ORDERED: Lisinopril 20mg tab ORAL SCH (09:00)
--- NOTE | 2017-11-29 16:32 | Discharge Summary ---
Discharge Summary Discharge Summary _ DATE OF ADMISSION: 11/24/2017 DATE OF DISCHARGE: 11/28/2017 CONSULTANTS: Dr. Matias Stallworth BRIEF HOSPITAL COURSE: Patient is an 82-year-old male, with history of hypertension, BPH, diabetes, who presented from home after a mechanical fall versus syncopal episode. Patient is poor historian. He stated he slipped and fell, he then presented to the emergency room. On evaluation he was noted to be febrile with elevated white count of 14,000 and elevated creatinine of 1.8 he had evidence of urine infection and was started on broad-spectrum IV antibiotic therapy. He was then admitted for further evaluation and care. He was started on IV hydration. He was given PT and OT. Urine culture positive for Pseudomonas aeruginosa. He was given Levaquin. He was noted to have episodes of bradycardia and was taken off clonidine. He was given lisinopril 20 mg daily and Norvasc 10 mg daily. He eventually defervesed. Leukocytosis resolved. He was eventually discharged back to care home. FINAL DIAGNOSES: Toxic and metabolic encephalopathy UTI due to pseudomonas aeruginosa BPH Hypertensive heart disease Sinus bradycardia DISPOSITION: Patient was discharged to [facility]. I have been assigned to dictate discharge summary on this account, and I was not involved in the patient's management. Sabine Cooper NP November 29, 2017 16:32
== END 2017-11-28 18:02 | DRG 871 ==
LOC: EDBD 15:08 → EMR 15:21 → 2E 15:40 → EDBEDREQ 16:52 → 2E 18:22
DX: A41.9 Sepsis, unspecified organism (principal); G92 Toxic encephalopathy; G93.41 Metabolic encephalopathy; N39.0 Urinary tract infection, site not specified; B96.5 Pseudomonas (aeruginosa) (mallei) (pseudomallei) as the cause of diseases classified elsewhere; R00.1 Bradycardia, unspecified; T46.5X5A Adverse effect of other antihypertensive drugs, initial encounter; I11.9 Hypertensive heart disease without heart failure; N40.0 Benign prostatic hyperplasia without lower urinary tract symptoms; E11.9 Type 2 diabetes mellitus without complications; Z91.81 History of falling
CPT/HCPCS: 36415; 71045; 80053; 80202; 81003; 82550; 83605; 83735; 83880; 84484; 85025; 85610; 85730; 87040; 87086; 87181; 93005; 99285; J8499